=== PATIENT | male | born 1970 | race Caucasian/White ===

== ENCOUNTER 2016-07-08 00:31 | Emergency (ER) | payer MEDICAID, OTHER ==
[~2016-07-08] VITALS: Ht 182.9 cm; Wt 115.0 kg
[~2016-07-08 00:31] MED LIST: CYMB30CA PO; GABA400 PO; IBUP800T23 PO; KEPP1000 PO; NAPR550 PO; OMEP20TA39 PO; OMEPPOW PO; ROBA750T3 PO; SERO300T PO
[2016-07-08 00:45] VITALS: BP 129/82; PULSE 90; RESP 14; TEMP 98; O2SAT 94
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
== END 2016-07-08 01:15 ==
LOC: NEPB 00:31
DX: S00.81XA Abrasion of other part of head, initial encounter (principal); S10.91XA Abrasion of unspecified part of neck, initial encounter; M54.5 Low back pain; G89.29 Other chronic pain; F17.200 Nicotine dependence, unspecified, uncomplicated; Z86.69 Personal history of other diseases of the nervous system and sense organs; Z86.59 Personal history of other mental and behavioral disorders; Y04.0XXA Assault by unarmed brawl or fight, initial encounter
CPT/HCPCS: 99283

== ENCOUNTER 2017-03-10 23:33 | Inpatient (IN) | payer MEDICAID ==
[2017-03-10 23:40] VITALS: O2SAT 96
[2017-03-10] MEDS ORDERED: ONDANSETRON HCL 4 MG/2 ML VIAL ONE (23:41)
[2017-03-10] MEDS ORDERED: DIPHTH/TETANUS/ACEL PERTUSSIS (BOOSTER) 0.5 ML VIAL/PFS IM ONE (23:44)
[2017-03-10] MEDS ORDERED: ceFAZolin 2 GM PREMIX 50 ML ONE (23:44)
[2017-03-10] MEDS ORDERED: MORPHINE SULFATE 8 MG/ML INJ ONE (23:44)
[2017-03-10] MEDS ORDERED: ETOMIDATE 20 MG/10 ML VIAL ONE (23:45)
[2017-03-10] MEDS ORDERED: fentaNYL DRIP 250 ML ONE (23:49)
[2017-03-10] MEDS ORDERED: MIDAZOLAM 100 MG/100 ML INJ 100 ML ONE (23:49)
[2017-03-10 23:54] LABS: AUTOMATED NEUTROPHIL # 8.1 TH/MM3 (1.8-7.7); BASOPHIL # 0.1 TH/MM3 (0-0.2); BASOPHIL % 0.6 % (0.0-2.0); EOSINOPHIL # 0.4 TH/MM3 (0-0.4); EOSINOPHIL % 2.8 % (0.0-4.0); HEMATOCRIT 46.5 % (39.0-51.0); LYMPH % 36.1 % (9.0-44.0); LYMPHOCYTE # 5.7 TH/MM3 (1.0-4.8); MEAN CELL VOLUME 93.3 FL (80.0-100.0); MEAN CORPUSCULAR HEMOGLOBIN 33.4 PG (27.0-34.0); MEAN CORPUSCULAR HGB CONC 35.8 % (32.0-36.0); MONO % 8.8 % (0.0-8.0); NEUT % 51.7 % (16.0-70.0); PLATELET COUNT 330 TH/MM3 (150-450); RED BLOOD COUNT 4.98 MIL/MM3 (4.50-5.90); RED CELL DISTRIBUTION WIDTH 13.7 % (11.6-17.2); WHITE BLOOD COUNT 15.8 TH/MM3 (4.0-11.0)
[2017-03-10 23:55] LABS: HEMO FLAGS AUTO DIFF
[2017-03-10 23:56] LABS: I-STAT POTASSIUM 3.8 MMOL/L (3.5-4.9)
[2017-03-11] VITALS (18 sets, daily range): BP systolic 100–132; BP diastolic 56–76; PULSE 73–106; RESP 16–21; TEMP 96.1–99.7; O2SAT 98–100
[2017-03-11 00:05] LABS: APTT (PATIENT) 29.1 SEC (24.3-30.1); INTERNATIONAL NORMALIZED RATIO 1.1 RATIO
[2017-03-11] MEDS: SODIUM CHLOR 0.9% 1000 ML INJ 1,000 ML IV SCH ×2 (00:07→12:42)
[2017-03-11] MEDS ORDERED: SODIUM CHLORIDE 0.9% FLUSH 10 ML FLUSH IV FLUSH PRN (00:15)
[2017-03-11] MEDS ORDERED: SODIUM CHLORIDE 0.9% FLUSH 10 ML FLUSH IVF PRN (00:15)
[2017-03-11] MEDS ORDERED: NALOXONE HCL 0.4 MG/ML AMP IV PUSH PRN (00:15)
[2017-03-11] MEDS ORDERED: ONDANSETRON HCL 4 MG/2 ML VIAL IV PUSH PRN (00:15)
[2017-03-11] MEDS ORDERED: Post-op Orders (for Pharmacy) MISC XX ONE (00:15)
--- NOTE | 2017-03-11 00:23 | RADRPT ---
EXAM DATE/TIME: 03/10/2017 23:27 [facility] COMPARISON: No previous studies available for comparison. INDICATIONS : Intubation of a Trauma Alert patient going to surgery for an arm laceration. MEDICAL HISTORY : None. SURGICAL HISTORY : None. ENCOUNTER: Initial ACUITY: 1 day PAIN SCORE: Non-responsive. LOCATION: Bilateral chest FINDINGS: The endotracheal tube tip is just above the corrina and should be pulled back a couple centimeters. Th e lungs are clear. No pleural effusion. No pneumothorax. Normal heart size. CONCLUSION: Clear lungs. Endotracheal tube tip close to the corrina. See Marti MD on March 11, 2017 at 0:21 Board Certified Radiologist. This report was verified electronically.
--- NOTE | 2017-03-11 00:25 | RADRPT ---
EXAM DATE/TIME: 03/10/2017 23:27 [facility] COMPARISON: No previous studies available for comparison. INDICATIONS : Right arm lacerations from punching glass, Trauma Alert. MEDICAL HISTORY : None. SURGICAL HISTORY : None. ENCOUNTER: Initial ACUITY: 1 day PAIN SCORE: Non-responsive. LOCATION: Right forearm FINDINGS: A single view shows a deep soft tissue laceration laterally of the mid forearm. There is some bandagi ng and a tourniquet device seen but no other definite radiopaque structures. The right radius and uln a are grossly intact. CONCLUSION: Mid forearm soft tissue laceration without an acute bony abnormality. See Marti MD on March 11, 2017 at 0:23 Board Certified Radiologist. This report was verified electronically.
--- NOTE | 2017-03-11 00:29 | PD ---
HPI Chief Complaint: Trauma (Alert) Time Seen by Provider: 00:14 Travel History International Travel<30 days: No Contact w/Intl Traveler<30days: No Traveled to known affect area: No History of Present Illness HPI Adult male presents to the emergency department by EMS transport as a trauma alert after witnessed punching a plate glass window sustaining a large laceration to the right forearm with significant blood loss noted at the scene by paramedics. Estimated blood loss at the scene was 1 1-1/2 L of blood. Patient was noted to have tachycardic heart rate of 160. Patient was found to be diaphoretic. Patient really agitated with presumptive alcohol intoxication. No other injuries identified. No other history obtained. No IV access upon arrival. Patient agitated unwilling to cooperate patient with obvious large laceration to the right proximal forearm requiring tourniquet application and dressing applied. Distally diminished capillary refill unable to palpate pulse that reportedly was present per EMS upon arrival. PFSH Past Medical History Narrative Medical Unable to obtain due to patient mentation and agitation Social History Tobacco Use: No (unable to obtain) Allergies-Medications (Allergen,Severity, Reaction): Coded Allergies: morphine (Unverified Allergy, Severe, 03/14/17) penicillin G (Unverified Allergy, Severe, 03/14/17) Penicillins (Verified Allergy, Unknown, Hives, 03/14/17) Reported Meds & Prescriptions Reported Meds & Active Scripts Active Narrative Medication Unable to obtain Review of Systems ROS Limitations: Clinical Condition, Intoxication, Other: (unable to obtain) Except as stated in HPI: all other systems reviewed are Neg (unable to obtain) Physical Exam Narrative GENERAL: Well-developed well-nourished agitated diaphoretic combative male, GCS 13 SKIN: Warm and dry. HEAD: Normocephalic. EYES: No scleral icterus. No injection or drainage. NECK: Supple, trachea midline. No JVD or lymphadenopathy. CARDIOVASCULAR: Regular rate and rhythm without murmurs, gallops, or rubs. RESPIRATORY: Breath sounds equal bilaterally. No accessory muscle use. GASTROINTESTINAL: Abdomen soft, non-tender, nondistended. MUSCULOSKELETAL: No cyanosis, or edema. Attention right upper extremity forearm shows 12 cm laceration through to the tendon with concern for extensor transection distally patient has delayed capillary refill unable to palpate radial pulse turn a complicated released with increased bleeding at laceration site; direct pressure applied trace palpable pulse. BACK: Nontender without obvious deformity. No CVA tenderness. Data Data Orders Orders Ondansetron Inj (Zofran Inj) (03/10/17 23:41) I-Stat Profile (03/10/17 23:38) I-Stat Creatinine (03/10/17 23:38) Morphine Inj (Morphine Inj) (03/10/17 23:44) Complete Blood Count With Diff (03/10/17 23:38) Prothrombin Time / Inr (Pt) (03/10/17 23:38) Act Partial Throm Time (Ptt) (03/10/17 23:38) Chest, Single Ap (03/10/17 23:38) Iv Access Insert/Monitor (03/10/17 23:38) Ecg Monitoring (03/10/17 23:38) Oximetry (03/10/17 23:38) Oxygen Administration (03/10/17 23:38) Cefazolin 2 Gm Premix (Ancef 2 Gm Premix (03/10/17 23:44) Yoao-Gkc-Fqghzd (Booster) Inj (Boostrix (03/10/17 23:44) Etomidate Inj (Amidate Inj) (03/10/17 23:45) Type And Screen (03/10/17 23:46) Midazolam 100 Mg/100 Ml Inj (Versed Inj) (03/10/17 23:49) Alcohol (Ethanol) (03/10/17 23:48) Drug Screen, Random Urine (03/10/17 23:48) Fentanyl Drip (Fentanyl Drip) (03/10/17 23:49) Forearm, One View (03/11/17 ) Admit To Inpatient (03/11/17 ) Code Status (03/11/17 00:07) Vital Signs (Adult) Q4H (03/11/17 00:07) Activity Bed Rest (03/11/17 00:07) Intake + Output SHANTE.QSHIFT (03/11/17 00:07) ^ Orogastric Tube (03/11/17 00:07) Diet Npo (03/11/17 Breakfast) Sodium Chlor 0.9% 1000 Ml Inj (Ns 1000 M (03/11/17 00:07) Sodium Chloride 0.9% Flush (Ns Flush) (03/11/17 00:15) Sodium Chloride 0.9% Flush (Ns Flush) (03/11/17 09:00) Ondansetron Inj (Zofran Inj) (03/11/17 00:15) Famotidine Inj (Pepcid Inj) (03/11/17 09:00) Basic Metabolic Panel (Bmp) (03/12/17 06:00) Complete Blood Count With Diff (03/12/17 06:00) Resp Incentive Spirometry (03/11/17 ) Consult Boot Repairer (03/11/17 ) Cefazolin Inj (Ancef Inj) (03/11/17 04:00) Post-Op Orders (For Pharmacy) (Post-Op O (03/11/17 00:15) Naloxone Inj (Narcan Inj) (03/11/17 00:15) Enoxaparin Inj (Lovenox Inj) (03/11/17 23:00) Inpatient Certification (03/11/17 ) Admit Order (Ed Use Only) (03/11/17 ) ^ Saline Lock (03/11/17 00:14) Resp Oxygen Kareem C Titrat 1-4 L (03/11/17 ) Notify Dr: Other (03/11/17 00:14) Sodium Chloride 0.9% Flush (Ns Flush) (03/11/17 09:00) Sodium Chloride 0.9% Flush (Ns Flush) (03/11/17 00:15) Labs Laboratory Tests Test 03/10/17 23:40 03/10/17 23:55 White Blood Count 15.8 TH/MM3 Red Blood Count 4.98 MIL/MM3 Hemoglobin 16.6 GM/DL Hematocrit 46.5 % Mean Corpuscular Volume 93.3 FL Mean Corpuscular Hemoglobin 33.4 PG Mean Corpuscular Hemoglobin Concent 35.8 % Red Cell Distribution Width 13.7 % Platelet Count 330 TH/MM3 Mean Platelet Volume 8.6 FL Neutrophils (%) (Auto) 51.7 % Lymphocytes (%) (Auto) 36.1 % Monocytes (%) (Auto) 8.8 % Eosinophils (%) (Auto) 2.8 % Basophils (%) (Auto) 0.6 % Neutrophils # (Auto) 8.1 TH/MM3 Lymphocytes # (Auto) 5.7 TH/MM3 Monocytes # (Auto) 1.4 TH/MM3 Eosinophils # (Auto) 0.4 TH/MM3 Basophils # (Auto) 0.1 TH/MM3 CBC Comment AUTO DIFF Differential Total Cells Counted 100 Neutrophils % (Manual) 54 % Lymphocytes % 31 % Monocytes % 10 % Eosinophils % 4 % Basophils % 1 % Neutrophils # (Manual) 8.5 TH/MM3 Differential Comment FINAL DIFF MANUAL Platelet Estimate NORMAL Platelet Morphology Comment NORMAL Red Cell Morphology Comment NORMAL Prothrombin Time 12.0 SEC Prothromb Time International Ratio 1.1 RATIO Activated Partial Thromboplast Time 29.1 SEC Bedside Hemoglobin 16.0 G/DL Bedside Hematocrit 47.0 % Bedside Sodium 142 MMOL/L Bedside Potassium 3.8 MMOL/L Bedside Chloride 102 MMOL/L Bedside Blood Urea Nitrogen 5 MG/DL Bedside Creatinine 1.6 MG/DL Bedside Glucose 106 MG/DL Ethyl Alcohol Level 205 MG/DL [facility] Medical Decision Making Medical Screen Exam Complete: Yes Emergency Medical Condition: Yes Medical Record Reviewed: Yes Interpretation(s) right forearm xr: no hoda injury no FB cxr: nad, ett above corrina (pulled back x 1 cm) Differential Diagnosis Complex laceration, tendon transection, neurovascular injury, altered mentation , polysubstance ingestion, alcohol intoxication, hypovolemic/hemorrhagic shock Narrative Course Patient moved from C32 as a trauma, alert level II and moved to have a the Trauma bay and identified to have sustained tachycardia and hypotension therefore elevated to level I trauma. No other obvious injuries identified. In view of patient's ongoing agitation secondary to hypovolemic/hemorrhagic shock and probable ingestant intoxication, he was urgently intubated. Trauma surgeon into see patient at the beside Ongoing direct pressure applied to laceration site with intermittent tourniquet application. Patient received 2 L normal saline, 2 g Ancef, tetanus status update, sedation with fentanyl and Versed, patient had 4 units of emergency blood released for 2 units to be administered in the trauma bay this was held until patient was transferred emergently to the OR at the recommendation of the trauma surgeon at the bedside ; has assumed patient ongoing care and management. Procedures Procedure Narrative Urgently the following procedure was performed: INTUBATION: The patient was put in optimal position for the procedure. Rapid sequence intubation was initiated by me using 20 milligrams of etomidate IV and 100 milligrams of X no choline IV. The patient was intubated with a 7.5 cuffed endotracheal tube. Tube placement was confirmed by visualization of the tube and balloon passing through the cords, capnometry and subsequent chest x-ray with assistance of C Mac device. Breath sounds were equal and well aerated bilaterally postintubation. No breath sounds over stomach. Patient tolerated procedure well. Postintubation chest x-ray shows endotracheal tube just above the corrina. Physician Communication Physician Communication Discussed with Trauma Surgeon and avionics integration engineer Dr Hartley Diagnosis Primary Impression: Laceration of right arm with complication Qualified Codes: S41.111A - Laceration without foreign body of right upper arm , initial encounter Admitting Information Admitting Physician Requests: Admit Marina Miranda MD Mar 11, 2017 00:29
[2017-03-11 00:51] LABS: BLOOD GAS BASE EXCESS -8.5 mmol/L (-2-2); BLOOD GAS CARBOXYHEMOGLOBIN 2.7 % (0-4); BLOOD GAS HCO3 17 mmol/L (22-26); BLOOD GAS O2 HGB SATURATION 96 % (90-100); BLOOD GAS OXYGEN CONTENT 18.4 Vol % (12.0-20.0); BLOOD GAS PCO2 35 mmHg (38-42); BLOOD GAS PO2 278 mmHg (61-120); BLOOD GAS TOTAL HGB 13.2 G/DL (12.0-16.0); CRITICAL VALUE NO; OXYGEN DEVICE OR; STAT YES; TEMP CORR TO 98.6
[2017-03-11 01:45] LABS: BASOPHILS 1 % (0-2); EOSINOPHILS 4 % (0-4); NEUTROPHIL # MANUAL DIFF 8.5 TH/MM3 (1.8-7.7); POLYS (SEG NEUTROPHILS) 54 % (16-70); WBC DIFF SAMPLE 100
[2017-03-11 01:46] LABS: PLATELET ESTIMATE SMEAR NORMAL (NORMAL); PLATELET MORPHOLOGY NORMAL (NORMAL); SCAN/DIFF FINAL DIFF MANUAL
[2017-03-11] MEDS ORDERED: PROPOFOL 1000 MG/100 ML INJ 100 ML ONE (01:46)
[2017-03-11] MEDS ORDERED: PHENYLEPHRINE HCL 10 MG/ML VIAL ONE (02:02)
[2017-03-11] MEDS ORDERED: *morphine SULFATE 8 MG/ML PERIprocedure ONLY ONE (02:13)
[2017-03-11] MEDS ORDERED: DO NOT ADM ANY ANTICOAGULANT DRUGS PRN (02:15)
[2017-03-11] MEDS ORDERED: PHENYLEPHRINE 40 MG in D5W 500 ML IV PRN (02:15)
[2017-03-11] MEDS ORDERED: NOREPINEPHRINE 4 MG/D5W 250 ML IV PRN (02:15)
[2017-03-11] MEDS ORDERED: TERBUTALINE INJ 1 MG/ML AMP SQ PRN (02:15)
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
[2017-03-11] MEDS ORDERED: PROPOFOL 1000 MG/100 ML INJ 100 ML IV PRN (03:15)
[2017-03-11] MEDS: PROPOFOL 1000 MG/100 ML IV PRN ×3 (04:45→09:26)
[2017-03-11] MEDS ORDERED: POTASSIUM PHOSPHATE MONOBASIC 500 MG TAB PO/TUBE PRN (08:00)
[2017-03-11] MEDS ORDERED: MAGNESIUM SULFATE INJ 4 GM in SODIUM CHLORIDE 0.9% INJ 92 ML IV PRN (08:00)
[2017-03-11] MEDS ORDERED: POTASSIUM CHLOR 40 MEQ PREMIX 100 ML IV PRN ×2 (08:00)
[2017-03-11] MEDS ORDERED: POTASSIUM CHLORIDE 25 MEQ EFFERVESCENT TAB PO PRN (08:00)
[2017-03-11] MEDS: CHLORHEXIDINE 0.12% (ORAL KIT) 15 ML CUP MT SCH ×2 (08:00→20:00)
[2017-03-11] MEDS ORDERED: POTASSIUM PHOSPHATE INJ 30 MMOL in SODIUM CHLOR 0.9% 250 ML INJ 250 ML IV PRN (08:00)
[2017-03-11] MEDS ORDERED: POTASSIUM PHOSPHATE MONOBASIC 500 MG TAB PO PRN (08:00)
[2017-03-11] MEDS ORDERED: SODIUM PHOSPHATE INJ 30 MMOL in SODIUM CHLOR 0.9% 250 ML INJ 240 ML IV PRN (08:00)
[2017-03-11] MEDS ORDERED: MAGNESIUM OXIDE 400 MG TAB PO PRN (08:00)
[2017-03-11] MEDS ORDERED: RESP: ALBUTEROL 2.5 MG/IPRATROPIUM 0.5 MG NEB (PRN) NEB (08:00)
[2017-03-11] MEDS ORDERED: POTASSIUM CHLOR 20 MEQ PREMIX 100 ML IV PRN (08:00)
[2017-03-11] MEDS ORDERED: MAGNESIUM SULFATE INJ 2 GM in SODIUM CHLORIDE 0.9% INJ 96 ML IV PRN (08:00)
[2017-03-11] MEDS: SODIUM CHLORIDE 0.9% FLUSH 10 ML FLUSH IV FLUSH SCH ×2 (08:01→21:00)
[2017-03-11] MEDS: FAMOTIDINE 20 MG/2 ML VIAL IV PUSH SCH ×2 (08:01→21:27)
[2017-03-11] MEDS ORDERED: SODIUM CHLORIDE 0.9% FLUSH 10 ML FLUSH IV FLUSH SCH (09:00)
[2017-03-11 09:14] LABS: HEMATOCRIT 34.6 % (39.0-51.0); REVIEW FLAG FINAL
[2017-03-11] MEDS: RESP: ALBUTEROL 2.5 MG/IPRATROPIUM 0.5 MG NEB (SCH) NEB ×3 (09:24→22:37)
[2017-03-11] MEDS: DOCUSATE SODIUM 50 MG/SENNA 8.6 MG TAB PO SCH ×2 (09:25→21:27)
[2017-03-11] MEDS ORDERED: oxyCODONE/ACETAMINOPHEN 5 MG/325 MG TAB PO PRN (11:00)
[2017-03-11] MEDS ORDERED: MORPHINE SULFATE 4 MG/ML INJ IV PUSH PRN (11:00)
[2017-03-11] MEDS ORDERED: LIDOCAINE HCL 1% PF 5 ML AMPULE OTHER ONE (12:00)
[2017-03-11] MEDS ORDERED: PHENYLEPH/NS 1000 MCG/10 ML SYR IV ONE (12:00)
[2017-03-11] MEDS ORDERED: ROCURONIUM INJ 50 MG/5 ML SYRINGE IV PUSH ONE (12:00)
[2017-03-11] MEDS ORDERED: PROPOFOL 200 MG/20 ML AMP IV ONE (12:00)
[2017-03-11] MEDS ORDERED: PHENYLEPHRINE HCL 10 MG/ML VIAL IV ONE (12:00)
[2017-03-11] MEDS ORDERED: SUCCINYLCHOLINE CHLORIDE 100 MG/5 ML SYRINGE IV PUSH ONE (12:00)
[2017-03-11] MEDS ORDERED: ePHEDrine/NS 25 MG/5 ML SYR IV ONE (12:00)
[2017-03-11] MEDS: GABAPENTIN 300 MG CAP PO SCH ×2 (12:42→18:00)
[2017-03-11] MEDS: MULTIVITAMIN INJ 10 ML, THIAMINE INJ 100 MG, FOLIC ACID INJ 1 MG in SODIUM CHLORID 0.9%... IV SCH (12:42)
--- NOTE | 2017-03-11 13:11 | RADRPT ---
EXAM DATE/TIME: 03/11/2017 12:20 [facility] COMPARISON: No previous studies available for comparison. INDICATIONS : No known injury. Pain and swelling on medial aspect of patient's hand. MEDICAL HISTORY : None. SURGICAL HISTORY : None. ENCOUNTER: Subsequent ACUITY: 1 day PAIN SCORE: 10/10 LOCATION: Left Hand FINDINGS: Three view examination of the left hand demonstrates no soft tissue swelling, dislocation, or fractur e. The carpal bones appear intact. The interphalangeal and metacarpophalangeal joints are intact. Bony mineralization is normal. CONCLUSION: No fracture. Tyron Flores MD on March 11, 2017 at 13:08 Board Certified Radiologist. This report was verified electronically.
[2017-03-11] MEDS ORDERED: QUEtiapine FUMARATE 25 MG TAB PO SCH (14:00)
[2017-03-11] MEDS: oxyCODONE/ACETAMINOPHEN 10 MG/325 MG TAB PO PRN (14:36)
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
--- NOTE | 2017-03-11 16:14 | OTSOAPIP ---
TIME SESSION COMPLETED: AM TREATMENT TIME: 0 MINS. CHART REVIEWED. ATTEMPTED TO SEE FOR OT HOWEVER WAS AGITATED PER NURSE AND DEFERRED UNTIL NEXT DAY. Therapist: JACKSON QUEEN OT/Jaimie Signature on file
--- NOTE | 2017-03-11 16:18 | HHI.CCPN ---
Subjective Brief History Patient with large lacerations of the right arm is the result of punching through the glass window and that didn't go well for him Patient end up with lacerations deep into the tendon sheaths however radial and ulnar artery remained intact and so did ulnar and median nerve 24 Hour Review/Hospital Course Patient underwent exploration by me last night This morning patient was going wild finally had to be extubated without any period of CPAP Patient is now stable awake somnolent and sort of unhappy about being here Will transfer to floor Objective Vital Signs Date Time Temp Pulse Resp B/P (MAP) Pulse Ox O2 Delivery O2 Flow Rate FiO2 03/11/17 14:00 92 03/11/17 12:00 99.0 18 102/56 (71) 100 03/11/17 11:10 Nasal Cannula 3 03/11/17 08:00 50 Intake and Output 03/11/17 03/11/17 03/12/17 08:00 16:00 00:00 Intake Total 3741 ml 1119 ml Output Total 1900 ml Balance 1841 ml 1119 ml Result Diagram: 03/11/17 0900 Other Results Laboratory Tests Test 03/11/17 00:30 Blood Gas Puncture Site DRAWN IN OR Blood Gas Patient Temperature 98.6 Blood Gas HCO3 17 mmol/L (22-26) Blood Gas Base Excess -8.5 mmol/L (-2-2) Blood Gas Oxygen Saturation 96 % (90-100) Arterial Blood pH 7.30 (7.380-7.420) Arterial Blood Partial Pressure CO2 35 mmHg (38-42) Arterial Blood Partial Pressure O2 278 mmHg (61-120) Arterial Blood Oxygen Content 18.4 Vol % (12.0-20.0) Arterial Blood Carboxyhemoglobin 2.7 % (0-4) Arterial Blood Methemoglobin 1.0 % (0-2) Blood Gas Hemoglobin 13.2 G/DL (12.0-16.0) Oxygen Delivery Device OR Blood Gas Ventilator Setting UNKNOWN Imaging Last 24 hours Impressions Radius/Ulna X-Ray 03/11/17 0000 Signed Impressions: Service Date/Time: Friday, March 10, 2017 23:27 - CONCLUSION: Mid forearm soft tissue laceration without an acute bony abnormality. See Marti MD Hand X-Ray 03/11/17 0000 Signed Impressions: Service Date/Time: Saturday, March 11, 2017 12:20 - CONCLUSION: No fracture. Tyron Flores MD Chest X-Ray 03/10/17 2338 Signed Impressions: Service Date/Time: Friday, March 10, 2017 23:27 - CONCLUSION: Clear lungs. Endotracheal tube tip close to the corrina. MD Graham Capellan Slobodan MD Mar 11, 2017 16:18
[2017-03-11] MEDS: MAGNESIUM HYDROXIDE SUSP 30 ML CUP PO SCH (21:27)
[2017-03-11] MEDS: QUEtiapine FUMARATE 25 MG TAB PO SCH (21:28)
[2017-03-11] MEDS: ENOXAPARIN SODIUM 40 MG/0.4 ML SYRINGE SQ SCH (23:34)
[2017-03-12] VITALS (10 sets, daily range): BP systolic 112–132; BP diastolic 61–76; PULSE 60–96; RESP 17–20; TEMP 96.6–98.7; O2SAT 97–100
[2017-03-12] MEDS: RESP: ALBUTEROL 2.5 MG/IPRATROPIUM 0.5 MG NEB (SCH) NEB ×4 (04:00→21:32)
[2017-03-12] MEDS: SODIUM CHLOR 0.9% 1000 ML INJ 1,000 ML IV SCH ×4 (06:01→20:00)
[2017-03-12 06:07] LABS: AUTOMATED NEUTROPHIL # 5.3 TH/MM3 (1.8-7.7); BASOPHIL # 0.1 TH/MM3 (0-0.2); EOSINOPHIL # 0.5 TH/MM3 (0-0.4); EOSINOPHIL % 5.8 % (0.0-4.0); HEMATOCRIT 27.5 % (39.0-51.0); HEMO FLAGS DIFF FINAL; LYMPH % 20.2 % (9.0-44.0); LYMPHOCYTE # 1.7 TH/MM3 (1.0-4.8); MEAN CELL VOLUME 93.4 FL (80.0-100.0); MEAN CORPUSCULAR HEMOGLOBIN 33.1 PG (27.0-34.0); MEAN CORPUSCULAR HGB CONC 35.4 % (32.0-36.0); MONO % 10.2 % (0.0-8.0); NEUT % 62.8 % (16.0-70.0); PLATELET COUNT 183 TH/MM3 (150-450); RED BLOOD COUNT 2.94 MIL/MM3 (4.50-5.90); RED CELL DISTRIBUTION WIDTH 13.3 % (11.6-17.2); WHITE BLOOD COUNT 8.5 TH/MM3 (4.0-11.0)
[2017-03-12 06:38] LABS: BICARBONATE 28.7 MEQ/L (21.0-32.0); POTASSIUM 3.4 MEQ/L (3.5-5.1)
[2017-03-12] MEDS: CHLORHEXIDINE 0.12% (ORAL KIT) 15 ML CUP MT SCH ×2 (07:29→20:00)
--- NOTE | 2017-03-12 08:08 | MP ---
cc: NANCY BERNARD MD DATE OF SURGERY 03/11/2017 PREOPERATIVE DIAGNOSIS Large laceration of the right forearm with significant bleeding. POSTOPERATIVE DIAGNOSIS Large laceration of the right forearm with significant bleeding. OPERATIVE PROCEDURE 1. Exploration of the ulnar and radial artery. 2. Exploration of the median and ulnar nerve irrigation. 3. Irrigation, meticulous hemostasis of branches of the both arteries and layered closure of the incision. SURGEON MD Graham ANESTHESIA General. ESTIMATED BLOOD LOSS 100 cc OPERATIVE PROCEDURE The patient is prepped and draped in the usual fashion and area explored. The tourniquet is taken down readily. There are several subcutaneous and muscular bleeders with the vessels measuring about 1-2 mm in diameter. These are ligated with 2-0 Vicryl on SH needles, [id number]. The fascia of the arm has been entered. Incision is measuring about 12 cm in length. It is sort of tangential under oblique angle, cutting through the skin, subcutaneous tissue and fascia; however, not visibly cutting any tendons. Ulnar nerve is explored, so is the median nerve. Both appear to be intact. There is some swelling around the median nerve but that is about it and some hematoma but the nerve itself is in continuity. The ulnar and radial arteries are now exposed; they are both intact in this area and once the tourniquet is released the patient has excellent distal pulse. The area is irrigated now with saline, meticulous hemostasis obtained, then closed in layers with 2-0 Vicryl and 3-0 Prolene. Dressing applied. The patient tolerated the procedure well. Nancy WOLFE/LIEN /3:04 PM /8:01 AM
[2017-03-12] MEDS: SODIUM CHLORIDE 0.9% FLUSH 10 ML FLUSH IV FLUSH SCH ×2 (09:00→21:09)
[2017-03-12] MEDS: FAMOTIDINE 20 MG/2 ML VIAL IV PUSH SCH ×2 (09:17→21:09)
[2017-03-12] MEDS: GABAPENTIN 300 MG CAP PO SCH ×3 (09:18→17:58)
[2017-03-12] MEDS: POTASSIUM CHLOR 20 MEQ PREMIX 100 ML IV PRN ×2 (09:18→11:32)
[2017-03-12] MEDS: QUEtiapine FUMARATE 25 MG TAB PO SCH ×2 (09:18→21:05)
[2017-03-12] MEDS: LACTULOSE SYRUP 20 GM/30 ML CUP PO SCH (09:32)
[2017-03-12] MEDS: DOCUSATE SODIUM 50 MG/SENNA 8.6 MG TAB PO SCH ×2 (09:33→21:04)
[2017-03-12] MEDS: oxyCODONE/ACETAMINOPHEN 10 MG/325 MG TAB PO PRN ×3 (10:00→21:05)
[2017-03-12] MEDS: MULTIVITAMIN INJ 10 ML, THIAMINE INJ 100 MG, FOLIC ACID INJ 1 MG in SODIUM CHLORID 0.9%... IV SCH (13:11)
--- NOTE | 2017-03-12 14:48 | HHI.CCPN ---
Subjective Brief History Patient with large lacerations of the right arm is the result of punching through the glass window and that didn't go well for him Patient end up with lacerations deep into the tendon sheaths however radial and ulnar artery remained intact and so did ulnar and median nerve 24 Hour Review/Hospital Course Patient underwent exploration by me last night This morning patient was going wild finally had to be extubated without any period of CPAP Patient is now stable awake somnolent and sort of unhappy about being here Will transfer to floor 03/12/17 Patient is now awake and alert answered questions appropriately Right arm incision is clean and dry and patient is moving all fingers although he states he is somewhat numb over the dorsum of the hand. Palmar surface sensory perception seems to be intact but patient is a unwilling to cooperate with exam basically refuses to do anything He states he cannot move his arm and shoulder which would be quite unusual because of this is nothing to do with his current injury Strong palpable brachial radial and ulnar pulse normal capillary refill Patient still in the ICU because there are no floor beds available but he does not require further ICU care Objective Vital Signs Date Time Temp Pulse Resp B/P (MAP) Pulse Ox O2 Delivery O2 Flow Rate FiO2 03/12/17 11:08 22 03/12/17 09:15 99 Nasal Cannula 2.00 03/12/17 08:00 70 03/12/17 08:00 98.2 127/72 (90) 03/11/17 08:00 50 Intake and Output 03/12/17 03/12/17 03/13/17 08:00 16:00 00:00 Intake Total 1590 ml Output Total 650 ml Balance 940 ml Result Diagram: 03/12/17 0515 03/12/17 0515 Nancy Stevenson MD Mar 12, 2017 14:48
[2017-03-12] MEDS: MAGNESIUM HYDROXIDE SUSP 30 ML CUP PO SCH (21:00)
[2017-03-12] MEDS: ENOXAPARIN SODIUM 40 MG/0.4 ML SYRINGE SQ SCH (23:20)
[2017-03-13] VITALS: BP 119/69; PULSE 81; RESP 17; TEMP 96.2; O2SAT 98
[2017-03-13] MEDS: SODIUM CHLOR 0.9% 1000 ML INJ 1,000 ML IV SCH ×2 (02:07→06:13)
[2017-03-13] MEDS: RESP: ALBUTEROL 2.5 MG/IPRATROPIUM 0.5 MG NEB (SCH) NEB ×2 (03:00→09:26)
[2017-03-13 03:01] VITALS: O2SAT 94
[2017-03-13] MEDS: oxyCODONE/ACETAMINOPHEN 10 MG/325 MG TAB PO PRN ×2 (06:11→09:05)
[2017-03-13 08:00] VITALS: BP 110/68; PULSE 88; RESP 17; TEMP 97; O2SAT 93
[2017-03-13] MEDS: SODIUM CHLORIDE 0.9% FLUSH 10 ML FLUSH IV FLUSH SCH (09:00)
[2017-03-13] MEDS: DOCUSATE SODIUM 50 MG/SENNA 8.6 MG TAB PO SCH (09:04)
[2017-03-13] MEDS: QUEtiapine FUMARATE 25 MG TAB PO SCH (09:04)
[2017-03-13] MEDS: GABAPENTIN 300 MG CAP PO SCH (09:04)
[2017-03-13] MEDS: LACTULOSE SYRUP 20 GM/30 ML CUP PO SCH (09:05)
[2017-03-13 09:27] VITALS: O2SAT 98
[2017-03-13 12:00] VITALS: BP 121/62; PULSE 72; RESP 16; TEMP 97.5; O2SAT 96
[2017-03-13] MEDS ORDERED: OXYC1TAB63 PO (12:14)
--- NOTE | 2017-03-13 12:46 | HHI.DS ---
Discharge Summary Admission Date Mar 11, 2017 at 00:19 Discharge Date: Mar 13, 2017 Admitting Diagnosis TA; R Forearm complex laceration; hemorrhagic shock (1) Arm laceration ICD Codes: S41.119A - Laceration without foreign body of unspecified upper arm , initial encounter Status: Acute Brief History S/P Trauma: Arm laceration CBC/BMP: 03/12/17 0515 03/12/17 0515 Significant Findings Laboratory Tests Test 03/10/17 23:40 03/10/17 23:55 03/11/17 00:30 03/11/17 06:00 White Blood Count 15.8 TH/MM3 (4.0-11.0) Monocytes (%) (Auto) 8.8 % (0.0-8.0) Neutrophils # (Auto) 8.1 TH/MM3 (1.8-7.7) Lymphocytes # (Auto) 5.7 TH/MM3 (1.0-4.8) Monocytes # (Auto) 1.4 TH/MM3 (0-0.9) Monocytes % 10 % (0-8) Neutrophils # (Manual) 8.5 TH/MM3 (1.8-7.7) Prothrombin Time 12.0 SEC (9.8-11.6) Bedside Blood Urea Nitrogen 5 MG/DL (8-26) Bedside Creatinine 1.6 MG/DL (0.8-1.3) Bedside Glucose 106 MG/DL (60-95) Ethyl Alcohol Level 205 MG/DL (0-5) Blood Gas HCO3 17 mmol/L (22-26) Blood Gas Base Excess -8.5 mmol/L (-2-2) Arterial Blood pH 7.30 (7.380-7.420) Arterial Blood Partial Pressure CO2 35 mmHg (38-42) Arterial Blood Partial Pressure O2 278 mmHg (61-120) Urine Opiates Screen POS (NEG) Urine Amphetamines Screen POS (NEG) Urine Cocaine Screen POS (NEG) Urine Cannabinoids Screen POS (NEG) Test 03/11/17 09:00 03/12/17 05:15 03/12/17 06:30 03/13/17 06:00 Hemoglobin 11.8 GM/DL (13.0-17.0) 9.7 GM/DL (13.0-17.0) Hematocrit 34.6 % (39.0-51.0) 27.5 % (39.0-51.0) Red Blood Count 2.94 MIL/MM3 (4.50-5.90) Monocytes (%) (Auto) 10.2 % (0.0-8.0) Eosinophils (%) (Auto) 5.8 % (0.0-4.0) Eosinophils # (Auto) 0.5 TH/MM3 (0-0.4) Blood Urea Nitrogen 6 MG/DL (7-18) Calcium Level 7.6 MG/DL (8.5-10.1) Potassium Level 3.4 MEQ/L (3.5-5.1) Imaging Last Impressions Radius/Ulna X-Ray 03/11/17 0000 Signed Impressions: Service Date/Time: Friday, March 10, 2017 23:27 - CONCLUSION: Mid forearm soft tissue laceration without an acute bony abnormality. See Marti MD Hand X-Ray 03/11/17 0000 Signed Impressions: Service Date/Time: Saturday, March 11, 2017 12:20 - CONCLUSION: No fracture. Tyron Flores MD Chest X-Ray 03/10/17 2338 Signed Impressions: Service Date/Time: Friday, March 10, 2017 23:27 - CONCLUSION: Clear lungs. Endotracheal tube tip close to the corrina. See Marti MD PE at Discharge GENERAL: 46-year-old well-nourished, well developed male sitting OOB in chair. SKIN: Warm and dry. HEAD: Atraumatic. Normocephalic. ENT: No nasal bleeding or discharge. Mucous membranes pink and moist. NECK: Trachea midline. No JVD. CARDIOVASCULAR: Regular rate and rhythm. RESPIRATORY: No accessory muscle use. Lungs clear to auscultation. Breath sounds equal bilaterally. GASTROINTESTINAL: Abdomen soft, non-tender, nondistended. + BS. MUSCULOSKELETAL: Extremities without cyanosis, +1 right hand and forearm edema. Right forearm sutures well approximated, site C/D/I. Small amount of serous drainage noted from incision. NEUROLOGICAL: Awake and alert. Normal speech. Hospital Course T[place]: Punched a large glass window sustaining a large laceration to the right forearm with significant blood loss. (EBL = 1-1.5 L) + ETOH 205. Tachycardic. Diaphoretic. He was combative and agitated in the ED, therefore he was intubated. INJURIES: Laceration RIGHT arm PMHx: Seizures 03/11: Repair and closure of RIGHT arm; complex laceration 03/11: Extubated Diet: Regular Pulmonary: IS, acapella, EZ pap. nebs. Pain: Percocet. Neurontin Activity: OOB. PT and OT ordered. GI: Pepcid PO. Bowel: Shonda-colace. MOM. Lactulose. LBM: 0 DVT: SCD's. Lovenox 40 QD Laceration RIGHT arm 03/11: Repair and closure of RIGHT arm; complex laceration Pain control OOB- PT and OT Hgb stable Wound care: Cleanse wound daily with soap and water. Cover with dry dressing if draining, otherwise leave open to air. Follow-up with trauma office in 2 weeks for suture removal Follow-up with PCP in one week. Plan of care discussed patient at bedside. Patient is clear from trauma surgery standpoint to safely discharge home. Pt Condition on Discharge: Stable Discharge Disposition: Discharge Home Discharge Instructions DIET: Follow Instructions for: As Tolerated, No Restrictions Activities you can perform: Regular-No Restrictions Teri Herbert Mar 13, 2017 12:46
[2017-03-14] MEDS ORDERED: BACT800T5 PO (19:50)
== END 2017-03-13 13:32 | disposition home or self-care (01) | DRG 987 ==
LOC: HOR 23:33 → NEDA 03-11 00:19 → MERGE 03-11 00:19 → EDBD 03-11 00:19 → N03B 03-11 02:23 → N07A 03-12 17:26
PROVIDERS: ADMIT Surgery; ATTEND Surgery
PROC: 0JQG0ZZ Repair Right Lower Arm Subcutaneous Tissue and Fascia, Open Approach (ICD-10-PCS; principal; 2017-03-11 00:15)
DX: S64.11XA Injury of median nerve at wrist and hand level of right arm, initial encounter (principal); J96.90 Respiratory failure, unspecified, unspecified whether with hypoxia or hypercapnia; R57.9 Shock, unspecified; S65.111A Laceration of radial artery at wrist and hand level of right arm, initial encounter; W18.02XA Striking against glass with subsequent fall, initial encounter; Y92.9 Unspecified place or not applicable; E86.1 Hypovolemia; R56.9 Unspecified convulsions; F10.129 Alcohol abuse with intoxication, unspecified; Y90.7 Blood alcohol level of 200-239 mg/100 ml
CPT/HCPCS: 31500; 36430; 43753; 51702; 71010; 73130; 80048; 80307; 82435; 82565; 82805; 82947; 84132; 84295; 84520; 85007; 85014; 85018; 85025; 85027; 85610; 85730; 86850; 86900; 86901; 86920; 87641; 90715; 94002; 94150; 94640; 94664; 94668; 96361; 96374; 96375; 99291; G0390; J0330; J0690; J1650; J2250; J2270; J2370; J2405; J3010; J3411; J3480; J7030; J7040; J7060; P9016

== ENCOUNTER 2017-03-14 16:26 | Emergency (ER) | payer SELFPAY ==
[~2017-03-14] VITALS: Ht 182.9 cm; Wt 107.0 kg
[~2017-03-14 16:26] MED LIST changes: +OXYC1TAB63 PO
[2017-03-14 16:31] VITALS: BP 126/75; PULSE 88; RESP 18; TEMP 99.9; O2SAT 98
[2017-03-14] MEDS ORDERED: SODIUM CHLORIDE 0.9% FLUSH 10 ML FLUSH IV FLUSH PRN (18:15)
[2017-03-14 18:40] VITALS: BP 111/62; PULSE 74; RESP 18; O2SAT 100
--- NOTE | 2017-03-14 18:48 | RADRPT ---
EXAM DATE/TIME: 03/14/2017 18:14 [facility] COMPARISON: No previous studies available for comparison. INDICATIONS : Pain swelling and drainage from right anterior forearm sutures, cut with glass MEDICAL HISTORY : None. SURGICAL HISTORY : None. ENCOUNTER: [facility] ACUITY: 4 - 6 days PAIN SCORE: 9/10 LOCATION: Right Foream FINDINGS: The bony structures are intact. No fracture is seen. The elbow and wrist joints are aligned. There is a soft tissue injury of the superficial anterior mid forearm. This is seen as an area of increased d ensity in the superficial fat. No foreign body seen. There is superficial edema. CONCLUSION: Soft tissue injury. See Maldonado MD on March 14, 2017 at 18:45 Board Certified Radiologist. This report was verified electronically.
[2017-03-14 19:12] LABS: AUTOMATED NEUTROPHIL # 5.2 TH/MM3 (1.8-7.7); BASOPHIL # 0.1 TH/MM3 (0-0.2); BASOPHIL % 1.3 % (0.0-2.0); EOSINOPHIL # 0.8 TH/MM3 (0-0.4); EOSINOPHIL % 8.9 % (0.0-4.0); HEMO FLAGS DIFF FINAL; LYMPH % 22.2 % (9.0-44.0); LYMPHOCYTE # 1.9 TH/MM3 (1.0-4.8); MEAN CELL VOLUME 94.3 FL (80.0-100.0); MEAN CORPUSCULAR HEMOGLOBIN 33.3 PG (27.0-34.0); MEAN CORPUSCULAR HGB CONC 35.3 % (32.0-36.0); MONO % 8.4 % (0.0-8.0); NEUT % 59.2 % (16.0-70.0); PLATELET COUNT 262 TH/MM3 (150-450); RED BLOOD COUNT 3.18 MIL/MM3 (4.50-5.90); RED CELL DISTRIBUTION WIDTH 13.2 % (11.6-17.2); WHITE BLOOD COUNT 8.7 TH/MM3 (4.0-11.0)
--- NOTE | 2017-03-14 19:26 | PD ---
HPI Chief Complaint: Skin Problem Time Seen by Provider: 17:58 Travel History International Travel<30 days: No Contact w/Intl Traveler<30days: No History of Present Illness HPI Patient comes back to the emergency department for reevaluation of laceration to his right forearm that occurred 3 days ago and repaired in the OR by trauma surgeon. Patient reports continued pain around site. Patient states he has not last picker his prescription for pain medication and is concerned that he did not get discharged on antibiotics. Patient states that one of his sutures popped prior to being discharged from the hospital and was told that there was nothing to be done about that. Patient reports burning sensation inside of the wound is worse with movement of his right upper extremity. Denies any radiation of pain. Patient denies doing anything for this. Denies any fevers or new injuries. 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) Past Surgical History Abdominal Surgery: No Cardiac Surgery: No Ear Surgery: No Endocrine Surgery: No Eye Surgery: No Genitourinary Surgery: No Oral Surgery: No Thoracic Surgery: No Other Surgery: Yes (hand) Social History Alcohol Use: Yes (occassionaly ) Tobacco Use: Yes (half a pack a day ) Substance Use: No (Denies) Allergies-Medications (Allergen,Severity, Reaction): Coded Allergies: morphine (Unverified Allergy, Severe, 03/14/17) penicillin G (Unverified Allergy, Severe, 03/14/17) Penicillins (Verified Allergy, Unknown, Hives, 03/14/17) Reported Meds & Prescriptions Reported Meds & Active Scripts Active Bactrim DS (Sulfamethoxazole-Trimethoprim) 800-160 Mg Tab 1 Tab PO BID Review of Systems Except as stated in HPI: all other systems reviewed are Neg Physical Exam Narrative GENERAL: Well-developed, overly nourished, in no acute distress, and non-ill appearing. SKIN: Well-healing surgical wound over right forearm. There is scant amount of clear yellowish drainage. It is tender to palpation. There is no erythematous or crepitus. There is no fluctuation, induration, or streaking. Neurovascularly stable distally. HEAD: Atraumatic. Normocephalic. EYES: Pupils equal and round. EOMI. No scleral icterus. No injection or drainage. ENT: No nasal bleeding or discharge. Mucous membranes pink and moist. NECK: Trachea midline. Supple. No nuclear rigidity. CARDIOVASCULAR: Radial pulses 2+, tach, and equal bilaterally. Capillary refill less than 2 seconds. RESPIRATORY: No accessory muscle use. No respiratory distress. MUSCULOSKELETAL: No obvious deformities. No clubbing. No cyanosis. No edema. Full range of motion. NEUROLOGICAL: Awake and alert. No obvious cranial nerve deficits. Motor grossly within normal limits. Normal speech. PSYCHIATRIC: Appropriate mood and affect; insight and judgment normal. Data Data Last Documented VS Vital Signs Date Time Temp Pulse Resp B/P (MAP) Pulse Ox O2 Delivery O2 Flow Rate FiO2 03/14/17 19:53 03/14/17 19:28 88 16 100 Room Air 03/14/17 16:31 99.9 Orders Orders Basic Metabolic Panel (Bmp) (03/14/17 18:03) Complete Blood Count With Diff (03/14/17 18:03) Iv Access Insert/Monitor (03/14/17 18:03) Ecg Monitoring (03/14/17 18:03) Oximetry (03/14/17 18:03) Sodium Chloride 0.9% Flush (Ns Flush) (03/14/17 18:15) Forearm (2vws) (03/14/17 ) Oxycodone-Acetamin 5-325 Mg (Percocet (03/14/17 20:00) Labs Laboratory Tests Test 03/14/17 18:45 White Blood Count 8.7 TH/MM3 Red Blood Count 3.18 MIL/MM3 Hemoglobin 10.6 GM/DL Hematocrit 30.0 % Mean Corpuscular Volume 94.3 FL Mean Corpuscular Hemoglobin 33.3 PG Mean Corpuscular Hemoglobin Concent 35.3 % Red Cell Distribution Width 13.2 % Platelet Count 262 TH/MM3 Mean Platelet Volume 8.5 FL Neutrophils (%) (Auto) 59.2 % Lymphocytes (%) (Auto) 22.2 % Monocytes (%) (Auto) 8.4 % Eosinophils (%) (Auto) 8.9 % Basophils (%) (Auto) 1.3 % Neutrophils # (Auto) 5.2 TH/MM3 Lymphocytes # (Auto) 1.9 TH/MM3 Monocytes # (Auto) 0.7 TH/MM3 Eosinophils # (Auto) 0.8 TH/MM3 Basophils # (Auto) 0.1 TH/MM3 CBC Comment DIFF FINAL Differential Comment Blood Urea Nitrogen 4 MG/DL Creatinine 0.75 MG/DL Random Glucose 106 MG/DL Calcium Level 8.5 MG/DL Sodium Level 142 MEQ/L Potassium Level 3.9 MEQ/L Chloride Level 106 MEQ/L Carbon Dioxide Level 30.0 MEQ/L Anion Gap 6 MEQ/L Estimat Glomerular Filtration Rate 113 ML/MIN MDM Medical Decision Making Medical Screen Exam Complete: Yes Emergency Medical Condition: Yes Differential Diagnosis Wound infection, wound recheck, postop complication, other Narrative Course Patient in no obvious distress upon re-evaluation. All pertinent laboratory/ Radiology result(s) discussed with patient. We'll place patient on antibiotics prophylactically. Discussed patient with Dr. Murphy prior to discharge, who is in agreement with plan of care and disposition. Patient was asked if they wanted to speak to my attending, which the patient did not wish to do at this time. Any questions/concerns in reference to patient diagnosis/condition discussed and clarified prior to patient's discharge. Reinforced sheer importance of close follow up with patient's primary physician or primary care clinic. Instructed patient to return to ED immediately, if symptoms return/ worsen. Patient showed understanding of above instructions. Further instructions and recommendations were detailed in discharge paperwork. Patient ambulated without difficulty out of ED at discharge. Diagnosis Primary Impression: Encounter for wound re-check Patient Instructions: Acute Wound Care (GEN), Care For Your Stitches (ED), General Instructions Additional Instructions: Follow-up as previously instructed. Take all medication as prescribed. Keep wound dry and clean as possible using soap and water. Use Neosporin to promote healing. Do not soak or submerge wound. Return to the emergency department if symptoms get worse.s Med/Other Pt SpecificInfo: Prescription(s) given Scripts Sulfamethoxazole-Trimethoprim (Bactrim DS) 800-160 Mg Tab 1 TAB PO BID for Infection, #14 TAB 0 Refills Prov: Arron Murphy MD 03/14/17 Disposition: 01 DISCHARGE HOME Condition: Stable Dani Mcmillan D PA Mar 14, 2017 19:26
[2017-03-14 19:28] VITALS: BP 122/59; PULSE 88; RESP 16; O2SAT 100
[2017-03-14 19:28] LABS: POTASSIUM 3.9 MEQ/L (3.5-5.1)
[2017-03-14] MEDS ORDERED: BACT800T5 PO (19:50)
[2017-03-14] MEDS ORDERED: oxyCODONE/ACETAMINOPHEN 5 MG/325 MG TAB PO ONE (20:00)
== END 2017-03-14 20:02 | disposition home or self-care (01) ==
LOC: NEPE 16:26
DX: S51.811A Laceration without foreign body of right forearm, initial encounter (principal); I10 Essential (primary) hypertension; X58.XXXA Exposure to other specified factors, initial encounter; Z09 Encounter for follow-up examination after completed treatment for conditions other than malignant neoplasm
CPT/HCPCS: 73090; 80048; 85025; 99284

== ENCOUNTER 2017-04-05 15:17 | Emergency (ER) | payer SELFPAY ==
[~2017-04-05] VITALS: Ht 182.9 cm; Wt 100.0 kg
[~2017-04-05 15:17] MED LIST changes: +BACT800T5 PO; -CYMB30CA PO; -GABA400 PO; -IBUP800T23 PO; -KEPP1000 PO; -NAPR550 PO; -OMEP20TA39 PO; -OMEPPOW PO; -OXYC1TAB63 PO; -ROBA750T3 PO; -SERO300T PO
[2017-04-05 15:18] VITALS: BP 136/73; PULSE 71; RESP 18; TEMP 98.4; O2SAT 100
--- NOTE | 2017-04-05 15:40 | PD ---
HPI Chief Complaint: Wound/Suture/Staple Re-Check Time Seen by Provider: 15:29 Travel History International Travel<30 days: No Contact w/Intl Traveler<30days: No Traveled to known affect area: No History of Present Illness HPI 46-year-old male presents to the emergency Department requesting suture removal from his right forearm from March 10. He says the area is extremely painful. He was on antibiotics for 2 weeks which he finished one week ago. He reports drainage from the wound site. Denies fever, vomiting. Pain is 10/10. Describes the pain as a throbbing, shooting, stabbing sensation. Pain is worse with movement and palpation of the arm. Pain is constant and no known relieving factors. Reports paresthesias to the right hand which have been unchanged since the injury. Denies loss of sensation, decreased range of motion , decreased strength to the affected extremity. Allergies to penicillins and morphine. Has no other medical complaints. No other modifying factors or associated signs and symptoms. 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) Past Surgical History Abdominal Surgery: No Cardiac Surgery: No Ear Surgery: No Endocrine Surgery: No Eye Surgery: No Genitourinary Surgery: No Oral Surgery: No Thoracic Surgery: No Other Surgery: Yes (hand) Social History Alcohol Use: Yes (occassionaly ) Tobacco Use: Yes (half a pack a day ) Substance Use: No (Denies) Allergies-Medications (Allergen,Severity, Reaction): Coded Allergies: morphine (Unverified Allergy, Severe, 04/05/17) penicillin G (Unverified Allergy, Severe, 04/05/17) Penicillins (Verified Allergy, Unknown, Hives, 04/05/17) Reported Meds & Prescriptions Reported Meds & Active Scripts Active Ibuprofen 800 Mg Tab 800 Mg PO Q6HR PRN Clindamycin (Clindamycin HCl) 150 Mg Cap 450 Mg PO Q6H 10 Days Reported Seroquel XR (Quetiapine Fumarate) 300 Mg Tab 600 Mg PO HS Seroquel (Quetiapine Fumarate) 300 Mg Tab 300 Mg PO BID Neurontin (Gabapentin) 400 Mg Cap 400 Mg PO BID Xanax (Alprazolam) 0.25 Mg Tab 0.25 Mg PO Q8H PRN Keppra (Levetiracetam) 500 Mg Tab 1,000 Mg PO BID Percocet (Oxycodone-Acetaminophen) 10-325 mg Tab 1 Tab PO Q6H PRN Review of Systems Except as stated in HPI: all other systems reviewed are Neg Physical Exam Narrative GENERAL: Well-nourished, well-developed male patient, in no acute distress SKIN: Warm and dry. Right forearm laceration that is well approximated with sutures intact; there is an area with a small amount of drainage noted; the laceration is surrounded by erythema and does have warmth to touch to the area with the drainage is; no lymphangitis; forearm is without edema; tenderness on palpation is out of proportion. Right upper extremity supple and non-tense with 2+ radial pulse and with sensory intact. HEAD: Atraumatic. Normocephalic. EYES: Pupils equal and round. No scleral icterus. No injection or drainage. ENT: Mucosa pink and moist. Airway patent. NECK: Trachea midline. CARDIOVASCULAR: Regular rate. RESPIRATORY: No accessory muscle use. GASTROINTESTINAL: Obese. MUSCULOSKELETAL: No obvious deformities. No clubbing. No cyanosis. No edema. NEUROLOGICAL: Awake and alert. Oriented 3. No obvious cranial nerve deficits. Motor grossly within normal limits. Normal speech. PSYCHIATRIC: Appropriate mood and affect; insight and judgment normal. Data Data Last Documented VS Vital Signs Date Time Temp Pulse Resp B/P (MAP) Pulse Ox O2 Delivery O2 Flow Rate FiO2 04/05/17 15:18 98.4 71 18 136/73 (94) 100 Room Air Orders Orders Forearm (2vws) (04/05/17 15:39) Ibuprofen (Motrin) (04/05/17 15:45) Wound Culture And Gram Stain (04/05/17 15:41) Ed Discharge Order (04/05/17 16:24) MDM Medical Decision Making Medical Screen Exam Complete: Yes Emergency Medical Condition: Yes Medical Record Reviewed: Yes Differential Diagnosis Wound infection, osteomyelitis, encounter for suture removal Narrative Course 46-year-old male presents for suture removal to his right forearm. Sutures been in place since March 10. Patient's pain is out of proportion on physical exam. There is some drainage coming from the laceration site. Wound culture ordered. I will order an x-ray to rule out osteomyelitis or acute process. Ibuprofen administered in the ER. 1621: Right forearm x-ray with no acute findings. Ibuprofen and Clindamycin prescribed for home for suspected wound infection. Instructed patient to follow up with primary care provider. Patient verbalizes understanding and agreement with treatment plan. Patient is medically cleared and stable for discharge. Discussed reasons to return to the emergency department. Patient agrees with treatment plan. The patients vital signs are stable and the patient is stable for outpatient follow-up and treatment. Patient discharged home, stable and in no acute distress. Diagnosis Primary Impression: Encounter for removal of sutures Additional Impression: Wound infection Referrals: [facility] Primary Care Physician Patient Instructions: Acute Wound Care (DC), General Instructions, Wound Infection (ED) Additional Instructions: Antibiotics as prescribed; clindamycin is $20 at the [facility] pharmacy in [facility] clean and dry Ibuprofen or Tylenol as directed and as needed for pain Follow-up with primary care provider Return to the emergency department immediately with worsening of symptoms Med/Other Pt SpecificInfo: Prescription(s) given Scripts Ibuprofen (Ibuprofen) 800 Mg Tab 800 MG PO Q6HR Y for PAIN, #20 TAB 0 Refills Prov: Carmen Mitchell 04/05/17 Clindamycin (Clindamycin) 150 Mg Cap 450 MG PO Q6H for Infection for 10 Days, #120 CAP 0 Refills Prov: Carmen Mitchell 04/05/17 Disposition: 01 DISCHARGE HOME Condition: Stable Carmen Mitchell Apr 05, 2017 15:40
[2017-04-05] MEDS ORDERED: IBUPROFEN 800 MG TAB PO ONE (15:45)
[2017-04-05] MEDS ORDERED: PERC10TA27 PO (15:59)
[2017-04-05] MEDS ORDERED: LEVE500 PO (15:59)
[2017-04-05] MEDS ORDERED: QUET300XR PO (16:02)
[2017-04-05] MEDS ORDERED: ALPR.5 PO (16:02)
[2017-04-05] MEDS ORDERED: ALPR.25 PO (16:02)
[2017-04-05] MEDS ORDERED: SERO300T PO (16:02)
[2017-04-05] MEDS ORDERED: NEUR600T PO (16:02)
[2017-04-05] MEDS ORDERED: NEUR400C PO (16:02)
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
[2017-04-05] MEDS ORDERED: CLIN150C14 PO (16:23)
[2017-04-05] MEDS ORDERED: IBUP1TAB7 PO (16:23)
== END 2017-04-05 17:00 | disposition home or self-care (01) ==
LOC: NEPK 15:17
DX: Z48.02 Encounter for removal of sutures (principal); M79.601 Pain in right arm; A49.01 Methicillin susceptible Staphylococcus aureus infection, unspecified site; F31.9 Bipolar disorder, unspecified; F41.9 Anxiety disorder, unspecified; I10 Essential (primary) hypertension; K21.9 Gastro-esophageal reflux disease without esophagitis; R56.9 Unspecified convulsions; F17.200 Nicotine dependence, unspecified, uncomplicated
CPT/HCPCS: 73090; 86403; 87070; 87186; 99281

== ENCOUNTER 2017-11-18 22:52 | Inpatient (IN) | payer MEDICAID, OTHER ==
[~2017-11-18] VITALS: Ht 182.9 cm; Wt 97.2 kg
[~2017-11-18 22:52] MED LIST changes: +ALPR.25 PO; -BACT800T5 PO; +CLIN150C14 PO; +IBUP1TAB7 PO; +LEVE500 PO; +NEUR400C PO; +PERC10TA27 PO; +QUET300XR PO; +SERO300T PO
[2017-11-18 22:58] VITALS: BP 137/84; PULSE 76; RESP 20; TEMP 98; O2SAT 95
[2017-11-18 23:12] VITALS: RESP 20
[2017-11-18 23:47] LABS: AUTOMATED NEUTROPHIL # 5.4 TH/MM3 (1.8-7.7); BASOPHIL # 0.1 TH/MM3 (0-0.2); BASOPHIL % 1.3 % (0.0-2.0); EOSINOPHIL # 0.2 TH/MM3 (0-0.4); EOSINOPHIL % 2.6 % (0.0-4.0); HEMATOCRIT 41.8 % (39.0-51.0); LYMPH % 21.4 % (9.0-44.0); LYMPHOCYTE # 1.7 TH/MM3 (1.0-4.8); MEAN CELL VOLUME 83.6 FL (80.0-100.0); MEAN CORPUSCULAR HGB CONC 33.5 % (32.0-36.0); MONO % 7.9 % (0.0-8.0); MONOCYTE # 0.6 TH/MM3 (0-0.9); NEUT % 66.8 % (16.0-70.0); PLATELET COUNT 234 TH/MM3 (150-450); RED CELL DISTRIBUTION WIDTH 15.1 % (11.6-17.2); WHITE BLOOD COUNT 8.2 TH/MM3 (4.0-11.0)
--- NOTE | 2017-11-19 00:02 | RADRPT ---
EXAM DATE: 11/18/2017 11:46 PM EDT AGE/SEX: 47 years / Male INDICATIONS: Chest pain. Poss overdose/EVAC CLINICAL DATA: This is the patient's initial encounter. Patient reports that signs and symptoms have been present for 1 day and indicates a pain score of Nonresponsive. MEDICAL/SURGICAL HISTORY: Non-responsive. Non-responsive. COMPARISON: [facility] [place], CHEST SINGLE AP, 03/10/2017. . FINDINGS: Single AP view of the chest. The lungs are clear. Cardiomediastinal silhouette within nor mal limits. No evidence of pleural effusion or pneumothorax. CONCLUSION: No acute cardiopulmonary disease identified. Electronically signed by: Eder Vazquez MD 11/19/2017 12:01 AM EDT
[2017-11-19 00:03] LABS: ACETAMINOPHEN LESS THAN 2.0 MCG/ML (10.0-30.0); ALBUMIN 3.7 GM/DL (3.4-5.0); ALKALINE PHOSPHATASE 71 U/L (45-117); ALT (GPT) 23 U/L (12-78); AST (GOT) 25 U/L (15-37); BICARBONATE 25.8 MEQ/L (21.0-32.0); BLOOD UREA NITROGEN 7 MG/DL (7-18); CALCIUM 8.4 MG/DL (8.5-10.1); CHLORIDE 103 MEQ/L (98-107); CREATININE 1.04 MG/DL (0.60-1.30); GLOMERULAR FILTRATION RATE 77 ML/MIN (>89); GLUCOSE,RANDOM 140 MG/DL (74-106); SODIUM (NA) 139 MEQ/L (136-145); TOTAL PROTEIN 7.1 GM/DL (6.4-8.2); TROPONIN I LESS THAN 0.02 NG/ML (0.02-0.05)
[2017-11-19] MEDS ORDERED: SODIUM CHLOR 0.9% 1000 ML INJ 1,000 ML IV ONE (00:15)
[2017-11-19] MEDS ORDERED: POTASSIUM CHLORIDE 10 MEQ CAP PO ONE (00:15)
[2017-11-19 00:16] LABS: OVALOCYTES 1+ (NORMAL)
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
[2017-11-19 01:06] LABS: BILIRUBIN, URINE NEG (NEG); BLOOD, URINE NEG (NEG); CALCIUM OXALATE CRYSTALS,URINE RARE /hpf; GLUCOSE,URINE NEG (NEG); KETONE, URINE NEG (NEG); MUCUS URINE FEW /lpf (OCC); NITRITE,URINE NEG (NEG); PH, URINE 6.5 (5.0-8.5); URINE COLOR YELLOW (YELLW/STRAW); URINE LEUKOCYTE ESTERASE NEG (NEG)
[2017-11-19 02:45] VITALS: BP 130/72; PULSE 88; RESP 20; TEMP 98; O2SAT 98
[2017-11-19 07:51] VITALS: BP 116/69; PULSE 70; RESP 17; O2SAT 67; O2SAT 99
--- NOTE | 2017-11-19 14:27 | EKG ---
Date Performed: 11/18/2017 Time Performed: 22:02:37 PTAGE: 47 years EKG: Sinus rhythm WITH OCCASIONAL VENTRICULAR PREMATURE COMPLEXES POSSIBLE LEFT ATRIAL ENLARGEMENT INCOMPLETE RIGHT BU NDLE BRANCH BLOCK SEPTAL MYOCARDIAL INFARCTION ABNORMAL ECG NO PREVIOUS TRACING DOCTOR: Bassam Moscoso Interpretating Date/Time 11/19/2017 14:26:35
[2017-11-19 17:15] VITALS: BP 120/65; PULSE 59; RESP 17; TEMP 97.5; O2SAT 100
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
[2017-11-19] MEDS ORDERED: ALUMINUM/MAGNESIUM/SIMETH 30 ML CUP PO PRN (17:30)
[2017-11-19] MEDS ORDERED: MAGNESIUM HYDROXIDE SUSP 30 ML CUP PO PRN (17:30)
[2017-11-19] MEDS ORDERED: ACETAMINOPHEN 325 MG TAB PO PRN (17:30)
[2017-11-19 19:30] VITALS: BP 118/62; PULSE 58; RESP 17; TEMP 98; O2SAT 100
[2017-11-19] MEDS: QUEtiapine FUMARATE 300 MG TAB PO SCH (20:09)
[2017-11-19] MEDS: REMOVE OLD PATCH T-DERMAL SCH (20:47)
[2017-11-20 05:45] VITALS: BP 124/61; PULSE 55; RESP 18; TEMP 97.7; O2SAT 100
[2017-11-20 08:36] LABS: BLOOD UREA NITROGEN 13 MG/DL (7-18); CALCIUM 8.4 MG/DL (8.5-10.1); CHLORIDE 105 MEQ/L (98-107); CHOLESTEROL 127 MG/DL (120-200); CHOLESTEROL/ HDL RATIO 3.98 RATIO; CREATININE 0.92 MG/DL (0.60-1.30); GLOMERULAR FILTRATION RATE 89 ML/MIN (>89); GLUCOSE,RANDOM 97 MG/DL (74-106); HDL CHOLESTEROL 31.9 MG/DL (40.0-60.0); LDL CHOLESTEROL 71 MG/DL (0-99); SODIUM (NA) 141 MEQ/L (136-145); TRIGLYCERIDES 120 MG/DL (42-150)
[2017-11-20] MEDS: QUEtiapine FUMARATE 300 MG TAB PO SCH ×2 (08:36→21:17)
[2017-11-20] MEDS: NICOTINE 21 MG/24 HR PATCH T-DERMAL SCH (09:00)
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
[2017-11-20] MEDS ORDERED: LORazepam 2 MG/ML VIAL IM PRN ×4 (10:15)
[2017-11-20] MEDS ORDERED: LORazepam 1 MG TAB PO PRN (10:15)
[2017-11-20] MEDS: GABAPENTIN 400 MG CAP PO SCH ×2 (10:15→21:16)
[2017-11-20] MEDS: levETIRAcetam 500 MG TAB PO SCH ×2 (10:15→21:16)
[2017-11-20] MEDS ORDERED: FLUMAZENIL 0.5 MG/5 ML VIAL IV PUSH PRN (10:15)
[2017-11-20] MEDS ORDERED: LORazepam 2 MG TAB PO PRN (10:15)
[2017-11-20] MEDS ORDERED: hydrOXYzine HCL 50 MG TAB PO PRN (10:15)
[2017-11-20] MEDS ORDERED: LOPERAMIDE HCL 2 MG CAP PO PRN (12:15)
[2017-11-20] MEDS ORDERED: cloNIDine HCL 0.1 MG TAB PO PRN (12:15)
[2017-11-20] MEDS ORDERED: ONDANSETRON ODT 4 MG TAB PO PRN (12:15)
[2017-11-20 16:09] VITALS: BP 117/62; PULSE 63; RESP 18; TEMP 98.3; O2SAT 100
[2017-11-20 16:12] LABS: HEMOGLOBIN A1C 5.2 % (4.3-6.0)
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
[2017-11-20] MEDS ORDERED: BACLOFEN 10 MG TAB PO PRN (16:45)
[2017-11-20] MEDS ORDERED: PILL SPLITTER OTHER PRN (17:30)
[2017-11-20] MEDS: REMOVE OLD LIDOCAINE PATCH T-DERMAL SCH (21:00)
[2017-11-20] MEDS: REMOVE OLD PATCH T-DERMAL SCH (21:00)
[2017-11-20] MEDS: FAMOTIDINE 20 MG TAB PO SCH (21:16)
[2017-11-21 06:24] VITALS: BP 115/57; PULSE 58; RESP 22; TEMP 97.3; O2SAT 99
[2017-11-21] MEDS: TAMSULOSIN HCL 0.4 MG CAP PO SCH (08:40)
[2017-11-21] MEDS: QUEtiapine FUMARATE 300 MG TAB PO SCH ×2 (08:40→20:38)
[2017-11-21] MEDS: levETIRAcetam 500 MG TAB PO SCH ×2 (08:41→20:36)
[2017-11-21] MEDS: GABAPENTIN 400 MG CAP PO SCH ×2 (08:41→20:38)
[2017-11-21] MEDS: FAMOTIDINE 20 MG TAB PO SCH ×2 (08:41→20:37)
[2017-11-21] MEDS: LIDOCAINE HCL 5% PATCH T-DERMAL SCH (08:43)
[2017-11-21] MEDS: NICOTINE 21 MG/24 HR PATCH T-DERMAL SCH (08:46)
--- NOTE | 2017-11-21 12:25 | HHI.PYPN ---
Subjective Chief Complaint: Reported suicidal overdose Remarks Patient seen and examined with nurse. Chart reviewed. Case discussed with nursing staff. On my examination today, the patient complains of back pain. He does walk with an antalgic gait. Hospitalist has already evaluated the patient for this issue and will be following up. Physical therapy eval has been ordered. Patient's affect is dysphoric today. He says that his hallucinations are worse today. He now reports auditory hallucinations of voices. No reported CAH. Some ongoing vague suicidality. No side effects from medications. No physical complaints. Review of Systems Except as stated in HPI: all other systems reviewed are Neg Mental Status Examination Appearance: Appropriate Consciousness: Alert Orientation: x4 Motor Activity: Other (Antalgic gait. No other motor abnormalities noted.) Speech: Unremarkable Language: Adequate Fund of Knowledge: Adequate Attention and Concentration: Easily Distracted Memory: Unremarkable (Grossly intact on clinical exam) Mood: Other (Remains dysphoric) Affect: Other (Restricted) Thought Process & Associations: Intact, Logical, Linear Thought Content: Appropriate Hallucination Type: Auditory Delusion Type: None Suicidal Ideation: Yes (Vague) Suicidal Plan: No Suicidal Intention: No Homicidal Ideation: No Homicidal Plan: No Homicidal Intention: No Insight: Adequate Judgment: Adequate Results Labs Labs reviewed Vitals/IOs Vital Signs Date Time Temp Pulse Resp B/P (MAP) Pulse Ox O2 Delivery O2 Flow Rate FiO2 11/21/17 06:24 97.3 58 22 115/57 (76) 99 11/19/17 17:15 Room Air Assessment & Plan Problem List: (1) Adjustment disorder with mixed disturbance of emotions and conduct ICD Codes: F43.25 - Adjustment disorder with mixed disturbance of emotions and conduct (2) Polysubstance dependence ICD Codes: F19.20 - Other psychoactive substance dependence, uncomplicated Assessment & Plan Titrate Seroquel to 300 mg in the morning and 400 mg at bedtime for reported hallucinatory material. Given patient's chronic pain issues, to consider adding an SNRI like Cymbalta for patient's dysphoria. Continue to monitor on the inpatient unit. Continue other medications and care as ordered. Justification for Cont. Inpt. Medication changes. Impairment in reality construction. Monitoring for impairment in safety. Risk for decompensation in less restrictive environment. Discharge Planning Pending psychiatric stabilization Request HC Surrog/Guard Advoc?: No Henry Khan MD Nov 21, 2017 12:25
--- NOTE | 2017-11-21 13:06 | HHI.PR ---
Subjective Remarks Follow-up visit for attempted heroin overdose, chronic pain, urinary hesitancy. Nurse reports Lidoderm patch was placed on patient, still complaining of back pain. Patient is seen and examined in his room, asleep in bed and appears to be in no acute distress. He wakes up with verbal stimuli, continues to complain of back pain and is asking why he is unable to get his Soma for pain. He reports pain is unchanged in his lower back, denies any saddle anesthesia, urinary or fecal incontinence. Patient also refused to try ibuprofen or Tylenol as reported by nurse. Discussed with patient trying ibuprofen and Tylenol alternating as ibuprofen as an anti-inflammatory drug. Also encourage patient to try baclofen as he has not yet had this medication. Patient reports he is no longer having urinary hesitancy, denies any fevers, chills, nausea, vomiting, diarrhea, headaches, dizziness, shortness of breath, cough or chest pain. Objective Vitals Vital Signs Date Time Temp Pulse Resp B/P (MAP) Pulse Ox O2 Delivery O2 Flow Rate FiO2 11/21/17 06:24 97.3 58 22 115/57 (76) 99 11/20/17 16:09 98.3 63 18 117/62 (80) 100 Result Diagram: 11/18/17 2323 11/20/17 0750 Imaging Last Impressions Chest X-Ray 11/18/17 2309 Signed Impressions: CONCLUSION: No acute cardiopulmonary disease identified. Objective Remarks GENERAL: male in no acute distress. SKIN:Cool and dry. HEAD: Normocephalic. EYES: Pupils equal round. No scleral icterus. No injection or drainage. ENT: Nose without bleeding. Airway patent. NECK: Trachea midline. CARDIOVASCULAR: Regular rate and rhythm without murmurs, gallops, or rubs. RESPIRATORY: Clear to auscultation. Breath sounds equal bilaterally. No wheezes , rales, or rhonchi. GASTROINTESTINAL: Abdomen soft, non-tender, nondistended. MUSCULOSKELETAL: Extremities without clubbing, cyanosis, or edema. Lumbar spine tenderness. Bilateral lower extremity strength while lying in bed normal with no limitations to range of motion. NEUROLOGICAL: Awake and alert. No cranial nerve deficits. Motor and sensory grossly within normal limits. Normal speech. A/P Assessment and Plan 47-year-old male with past medical history significant for hypertension, enlarged prostate, GERD, chronic back pain, schizophrenia, bipolar disorder, and PTSD who presented to the emergency department following an attempted overdose and subsequently placed under Alves act. [facility] has been consulted to assist with medical management along with treatment of patient's chronic pain and myalgias. Heroin OD Polysubstance abuse -Treatment plan per psychiatry greatly appreciated -Discussed the importance of drug cessation, monitor for withdrawals Chronic back pain/myalgias -? History of chronic pain -Due to polysubstance abuse discussed pain management with Tylenol, ibuprofen , baclofen, and Lidoderm patch. -Encourage patient to try baclofen. Urinary hesitancy -UA collected on 11/19 with no culture indicated, denies any dysuria. -Started on Flomax with improvement in symptoms. Hypokalemia, resolved Hypertension, stable without medications for the moment, continue to monitor. GERD -Start Pepcid twice a day DVT prophylaxis-ambulation Discussed with patient and nurse. Wallace Troncoso Nov 21, 2017 13:06
[2017-11-21 17:49] VITALS: BP 111/69; PULSE 58; RESP 21; TEMP 98.3; O2SAT 98
[2017-11-21] MEDS: IBUPROFEN 600 MG TAB PO PRN ×2 (19:55→21:05)
[2017-11-21] MEDS: REMOVE OLD PATCH T-DERMAL SCH (21:00)
[2017-11-21] MEDS: REMOVE OLD LIDOCAINE PATCH T-DERMAL SCH (21:00)
[2017-11-22 05:39] VITALS: BP 105/56; PULSE 53; RESP 16; TEMP 97.9; O2SAT 98
[2017-11-22] MEDS: NICOTINE 21 MG/24 HR PATCH T-DERMAL SCH (09:00)
[2017-11-22] MEDS ORDERED: QUEtiapine FUMARATE 300 MG TAB PO SCH (09:00)
[2017-11-22] MEDS: GABAPENTIN 400 MG CAP PO SCH ×2 (10:20→20:27)
[2017-11-22] MEDS: TAMSULOSIN HCL 0.4 MG CAP PO SCH (10:20)
[2017-11-22] MEDS: levETIRAcetam 500 MG TAB PO SCH ×2 (10:20→20:25)
[2017-11-22] MEDS: FAMOTIDINE 20 MG TAB PO SCH ×2 (10:22→20:25)
[2017-11-22] MEDS: LIDOCAINE HCL 5% PATCH T-DERMAL SCH (10:23)
--- NOTE | 2017-11-22 11:18 | HHI.PR ---
Subjective Remarks Follow-up visit for attempted heroin overdose, chronic pain, urinary hesitancy. Patient is seen and examined resting in his room. He reports "I slept pretty good last night, I had a couple of dreams". He continues to complain of lower back pain as well as chills. Denies any fever, cough, SOB, N/V/D. I discussed with patient asking for PRN Baclofen for pain as he has only used one dose of this medication. Objective Vitals Vital Signs Date Time Temp Pulse Resp B/P (MAP) Pulse Ox O2 Delivery O2 Flow Rate FiO2 11/22/17 05:39 97.9 53 16 105/56 (72) 98 11/21/17 17:49 98.3 58 21 111/69 (83) 98 Result Diagram: 11/18/17 7513 11/20/17 0750 Imaging Last Impressions Chest X-Ray 11/18/17 2309 Signed Impressions: CONCLUSION: No acute cardiopulmonary disease identified. Objective Remarks GENERAL: male in no acute distress. SKIN:Cool and dry. HEAD: Normocephalic. EYES: Pupils equal round. No scleral icterus. No injection or drainage. ENT: Nose without bleeding. Airway patent. NECK: Trachea midline. CARDIOVASCULAR: Regular rate and rhythm without murmurs, gallops, or rubs. RESPIRATORY: Clear to auscultation. Breath sounds equal bilaterally. No wheezes , rales, or rhonchi. GASTROINTESTINAL: Abdomen soft, non-tender, nondistended. MUSCULOSKELETAL: Extremities without clubbing, cyanosis, or edema. Moves all extremities without difficulty. NEUROLOGICAL: Awake and alert. No cranial nerve deficits. Motor and sensory grossly within normal limits. Normal speech. A/P Assessment and Plan 47-year-old male with past medical history significant for hypertension, enlarged prostate, GERD, chronic back pain, schizophrenia, bipolar disorder, and PTSD who presented to the emergency department following an attempted overdose and subsequently placed under Alves act. [facility] has been consulted to assist with medical management along with treatment of patient's chronic pain and myalgias. Heroin OD Polysubstance abuse -Treatment plan per psychiatry greatly appreciated -Discussed the importance of drug cessation, monitor for withdrawals, possibly reason behind his reported chills Chronic back pain/myalgias -? History of chronic pain -Due to polysubstance abuse discussed pain management with Tylenol, ibuprofen , baclofen, and Lidoderm patch. -Encourage patient to try baclofen, will increase dose to 20mg Urinary hesitancy -UA collected on 11/19 with no culture indicated, denies any dysuria. -Continue Flomax Hypokalemia, resolved Hypertension, stable without medications for the moment, continue to monitor. GERD -Start Pepcid twice a day DVT prophylaxis-ambulation Discussed with patient. Wallace Troncoso Nov 22, 2017 11:18
--- NOTE | 2017-11-22 12:01 | HHI.PYPN ---
Subjective Chief Complaint: Reported suicidal overdose Remarks Patient seen and examined with nurse. Chart reviewed. Case discussed with nursing staff. On my examination today, patient remains dysphoric. He is secluding in his room. He reports that he is doing so because he is experiencing command auditory hallucinations to hurt others. He has no specific victim in mind and denies any violent or homicidal intent. He reports that he did sleep a little better with increased dose of Seroquel at HS. denies side effects from medications. Continues to complain of chronic back pain. No other physical complaints. Review of Systems Except as stated in HPI: all other systems reviewed are Neg Mental Status Examination Appearance: Appropriate Consciousness: Alert Orientation: x4 Motor Activity: Other (No abnormal motor movements noted) Speech: Unremarkable Language: Adequate Fund of Knowledge: Adequate Attention and Concentration: Easily Distracted Memory: Unremarkable (Grossly intact on clinical exam) Mood: Other (Dysphoric) Affect: Other (Restricted) Thought Process & Associations: Intact, Logical, Linear Thought Content: Appropriate Hallucination Type: Auditory (Reported CAH to hurt others. Does not appear internally stimulated.) Delusion Type: None Suicidal Ideation: No Suicidal Plan: No Suicidal Intention: No Homicidal Ideation: Yes (vague) Homicidal Plan: No Homicidal Intention: No Insight: Adequate Judgment: Adequate Results Labs Labs reviewed. Vitals/IOs Vital Signs Date Time Temp Pulse Resp B/P (MAP) Pulse Ox O2 Delivery O2 Flow Rate FiO2 11/22/17 05:39 97.9 53 16 105/56 (72) 98 11/19/17 17:15 Room Air Assessment & Plan Problem List: (1) Adjustment disorder with mixed disturbance of emotions and conduct ICD Codes: F43.25 - Adjustment disorder with mixed disturbance of emotions and conduct (2) Polysubstance dependence ICD Codes: F19.20 - Other psychoactive substance dependence, uncomplicated Assessment & Plan Inadequate response to current therapy. Titrate Seroquel to 400mg BID to target reported psychotic symptoms. Add Cymbalta 40mg daily to target dysphoria with plans to titrate to effect. Continue to monitor on lower acuity unit with low threshold to transfer to higher acuity unit should patient's behavior deteriorate in response to reported command auditory hallucinations. Hospitalist input noted and appreciated. Continue other medications and care as ordered. I have advised the patient that I will be out of the office next week. Justification for Cont. Inpt. Medication changes. 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 Monitoring for impairment in safety. High risk for decompensation in less restrictive environment. Discharge Planning Pending psychiatric stabilization. Possible discharge after the weekend. Request HC Surrog/Guard Advoc?: No Henry Khan MD Nov 22, 2017 12:01
[2017-11-22 17:28] VITALS: BP 108/57; PULSE 80; RESP 19; TEMP 98.2; O2SAT 100
[2017-11-22] MEDS: REMOVE OLD LIDOCAINE PATCH T-DERMAL SCH (20:26)
[2017-11-22] MEDS: QUEtiapine FUMARATE 300 MG TAB PO SCH (20:26)
[2017-11-22] MEDS: REMOVE OLD PATCH T-DERMAL SCH (20:36)
[2017-11-23 05:20] VITALS: BP 116/61; PULSE 58; RESP 16; TEMP 98.9; O2SAT 96
[2017-11-23] MEDS: QUEtiapine FUMARATE 200 MG TAB PO SCH ×2 (08:33→20:33)
[2017-11-23] MEDS: GABAPENTIN 400 MG CAP PO SCH ×2 (08:33→20:34)
[2017-11-23] MEDS: TAMSULOSIN HCL 0.4 MG CAP PO SCH (08:33)
[2017-11-23] MEDS: FAMOTIDINE 20 MG TAB PO SCH ×2 (08:34→20:34)
[2017-11-23] MEDS: levETIRAcetam 500 MG TAB PO SCH ×2 (08:34→20:33)
[2017-11-23] MEDS: DULoxetine HCl DR 20 MG CAP PO SCH (08:34)
[2017-11-23] MEDS: LIDOCAINE HCL 5% PATCH T-DERMAL SCH (08:37)
[2017-11-23] MEDS: NICOTINE 21 MG/24 HR PATCH T-DERMAL SCH (08:38)
[2017-11-23] MEDS: IBUPROFEN 600 MG TAB PO PRN ×2 (11:05→20:37)
[2017-11-23] MEDS: DOCUSATE SODIUM 50 MG/SENNA 8.6 MG TAB PO SCH ×2 (11:05→20:34)
[2017-11-23] MEDS: BACLOFEN 20 MG TAB PO PRN ×2 (11:05→20:34)
--- NOTE | 2017-11-23 12:01 | HHI.PYPN ---
Subjective Chief Complaint: Reported suicidal overdose Remarks Patient was seen and case discussed with nursing. Patient has passive suicidal ideation without any intent or plan. He feels hopeless towards the future. Minimizes his history of drug use. He is eating and sleeping well. Compliant with medications. No psychotic symptoms were elicited Mental Status Examination Appearance: Appropriate Consciousness: Alert Orientation: x4 Motor Activity: Other (No abnormal motor movements noted) Speech: Unremarkable Language: Adequate Fund of Knowledge: Adequate Attention and Concentration: Easily Distracted Memory: Unremarkable (Grossly intact on clinical exam) Mood: Other (Dysphoric) Affect: Other (Restricted) Thought Process & Associations: Intact, Logical, Linear Thought Content: Appropriate Hallucination Type: Auditory (Reported CAH to hurt others. Does not appear internally stimulated.) Delusion Type: None Suicidal Ideation: Yes (Passive) Suicidal Plan: No Suicidal Intention: No Homicidal Ideation: No Homicidal Plan: No Homicidal Intention: No Insight: Adequate Judgment: Adequate Results Vitals/IOs Vital Signs Date Time Temp Pulse Resp B/P (MAP) Pulse Ox O2 Delivery O2 Flow Rate FiO2 11/23/17 05:20 98.9 58 16 116/61 (79) 96 11/19/17 17:15 Room Air Assessment & Plan Problem List: (1) Adjustment disorder with mixed disturbance of emotions and conduct ICD Codes: F43.25 - Adjustment disorder with mixed disturbance of emotions and conduct (2) Polysubstance dependence ICD Codes: F19.20 - Other psychoactive substance dependence, uncomplicated Assessment & Plan Continue current treatment plan Justification for Cont. Inpt. Patient would decompensate in a less restrictive setting Request HC Surrog/Guard Advoc?: No Larry Munroe DO Nov 23, 2017 12:01
--- NOTE | 2017-11-23 14:47 | HHI.PR ---
Subjective Remarks Follow-up visit for attempted heroin overdose, and chronic pain. Patient was seen and examined around 11am today. Spoke with nurse who reports patient has been seclusive in his room and has also been sleeping most of the morning patient has made any complaints per nurse. He is seen ambulating without difficulties in the day room getting something to drink. We talk and I examine in his room. He reports he has been sleeping, but knows he is not ready to go has he will continue see and hear her girlfriend. Patient also reports some nausea, and chills, but no vomiting. He denies any fevers, SOB, cough or dysuria. He continues to complain of back pain, when I discuss with him regarding PRN Baclofen he tells me he has told the nurse, but that he has not been receiving anything for this. Once again nurse did not report that patient had made complaints regarding pain. Patient also states that he thought he was getting this medication automatically, because at home he would take his pain medication on a scheduled basis. Objective Vitals Vital Signs Date Time Temp Pulse Resp B/P (MAP) Pulse Ox O2 Delivery O2 Flow Rate FiO2 11/23/17 05:20 98.9 58 16 116/61 (79) 96 11/22/17 17:28 98.2 80 19 108/57 (74) 100 Result Diagram: 11/20/17 0750 Imaging Last Impressions Chest X-Ray 11/18/17 2309 Signed Impressions: CONCLUSION: No acute cardiopulmonary disease identified. Objective Remarks GENERAL: male in no acute distress. SKIN:Cool and dry. HEAD: Normocephalic. EYES: Pupils equal round. No scleral icterus. No injection or drainage. ENT: Nose without bleeding. Airway patent. NECK: Trachea midline. CARDIOVASCULAR: Regular rate and rhythm without murmurs, gallops, or rubs. RESPIRATORY: Clear to auscultation. Breath sounds equal bilaterally. No wheezes , rales, or rhonchi. GASTROINTESTINAL: Abdomen soft, non-tender, nondistended. MUSCULOSKELETAL: Extremities without clubbing, cyanosis, or edema. Moves all extremities without difficulty. NEUROLOGICAL: Awake and alert. No cranial nerve deficits. Motor and sensory grossly within normal limits. Normal speech. A/P Assessment and Plan 47-year-old male with past medical history significant for hypertension, enlarged prostate, GERD, chronic back pain, schizophrenia, bipolar disorder, and PTSD who presented to the emergency department following an attempted overdose and subsequently placed under Alves act. [facility] has been consulted to assist with medical management along with treatment of patient's chronic pain and myalgias. Heroin OD Polysubstance abuse -Treatment plan per psychiatry greatly appreciated -Discussed the importance of drug cessation, monitor for withdrawals, possibly reason behind his reported chills Chronic back pain/myalgias -? History of chronic pain -Due to polysubstance abuse discussed pain management with Tylenol, ibuprofen , baclofen, and Lidoderm patch. -PRN Baclofen 20mg TID, patient not making pain complaints to nurse, however will complain of pain to me. Discussed this is a PRN medication, this has been discussed with patient on prior visits. Urinary hesitancy -UA collected on 11/19 with no culture indicated, denies any dysuria. -Continue Flomax Hypokalemia, resolved Hypertension, stable without medications for the moment, continue to monitor. GERD -Continue Pepcid twice a day DVT prophylaxis-ambulation Discussed with patient and nurse. Wallace Troncoso Nov 23, 2017 14:47
[2017-11-23 17:13] VITALS: BP 119/66; PULSE 75; RESP 16; TEMP 97.6; O2SAT 98
[2017-11-23] MEDS: diphenhydrAMINE HCL 50 MG CAP PO PRN (20:33)
[2017-11-23] MEDS: REMOVE OLD PATCH T-DERMAL SCH (21:00)
[2017-11-23] MEDS: REMOVE OLD LIDOCAINE PATCH T-DERMAL SCH (21:00)
[2017-11-24 06:40] VITALS: BP 117/66; PULSE 55; RESP 18; TEMP 97.5; O2SAT 98
[2017-11-24] MEDS: LIDOCAINE HCL 5% PATCH T-DERMAL SCH (09:00)
[2017-11-24] MEDS: NICOTINE 21 MG/24 HR PATCH T-DERMAL SCH (09:00)
[2017-11-24] MEDS: levETIRAcetam 500 MG TAB PO SCH ×2 (09:09→21:11)
[2017-11-24] MEDS: DULoxetine HCl DR 20 MG CAP PO SCH (09:09)
[2017-11-24] MEDS: GABAPENTIN 400 MG CAP PO SCH ×2 (09:09→21:11)
[2017-11-24] MEDS: QUEtiapine FUMARATE 200 MG TAB PO SCH ×2 (09:10→21:11)
[2017-11-24] MEDS: TAMSULOSIN HCL 0.4 MG CAP PO SCH (09:10)
[2017-11-24] MEDS: FAMOTIDINE 20 MG TAB PO SCH ×2 (09:10→21:11)
[2017-11-24] MEDS: DOCUSATE SODIUM 50 MG/SENNA 8.6 MG TAB PO SCH ×2 (09:10→21:00)
--- NOTE | 2017-11-24 10:22 | HHI.PYPN ---
Subjective Chief Complaint: Reported suicidal overdose Remarks Patient was seen and case discussed with nursing. Patient remains blunted and seclusive to his room. He is having recurrent hallucinations of his ex -girlfriend. Says he sees shadows. He has passive suicidal ideation. Mood is depressed. But he denies suicidal intent or plan. Mental Status Examination Appearance: Appropriate Consciousness: Alert Orientation: x4 Motor Activity: Other (No abnormal motor movements noted) Speech: Unremarkable Language: Adequate Fund of Knowledge: Adequate Attention and Concentration: Easily Distracted Memory: Unremarkable (Grossly intact on clinical exam) Mood: Sad Affect: Other (Restricted) Thought Process & Associations: Intact, Logical, Linear Thought Content: Appropriate Hallucination Type: Auditory (Reported CAH to hurt others. Does not appear internally stimulated.) Delusion Type: None Suicidal Ideation: Yes (Passive) Suicidal Plan: No Suicidal Intention: No Homicidal Ideation: No Homicidal Plan: No Homicidal Intention: No Insight: Adequate Judgment: Adequate Results Vitals/IOs Vital Signs Date Time Temp Pulse Resp B/P (MAP) Pulse Ox O2 Delivery O2 Flow Rate FiO2 11/24/17 06:40 97.5 55 18 117/66 (83) 98 Assessment & Plan Problem List: (1) Adjustment disorder with mixed disturbance of emotions and conduct ICD Codes: F43.25 - Adjustment disorder with mixed disturbance of emotions and conduct (2) Polysubstance dependence ICD Codes: F19.20 - Other psychoactive substance dependence, uncomplicated Assessment & Plan Continue current treatment plan Justification for Cont. Inpt. Patient would decompensate in a less restrictive setting Request HC Surrog/Guard Advoc?: No Larry Munroe DO Nov 24, 2017 10:22
--- NOTE | 2017-11-24 13:10 | HHI.PR ---
Subjective Remarks Follow-up for back pain, overdose. Patient seen eating lunch in the day room. He reports continued low back pain, worse on the lumbar spinous processes with radiation to the right lumbar paraspinous muscles, described as a constant 8/10 throbbing pains. He reports minimal relief with Lidoderm patch and baclofen. The patient admits to recent IV drug use within the past month. He states his back pain has been getting worse than his usual chronic pains. He denies fevers but does report chills and sweats at times. Denies any chest pain or shortness of breath. Denies any other medical complaints at this time. Objective Vitals Vital Signs Date Time Temp Pulse Resp B/P (MAP) Pulse Ox O2 Delivery O2 Flow Rate FiO2 11/24/17 06:40 97.5 55 18 117/66 (83) 98 11/23/17 21:37 16 11/23/17 17:13 97.6 75 16 119/66 (83) 98 Result Diagram: 11/20/17 0750 Imaging Last Impressions Chest X-Ray 11/18/17 2309 Signed Impressions: CONCLUSION: No acute cardiopulmonary disease identified. Objective Remarks GENERAL: Well-nourished, well-developed middle-aged male patient in [facility]. SKIN: Warm and dry. No rash. HEENT: Normocephalic. Atraumatic. Pupils equal and round. Mucous membranes pink and moist. NECK: Supple. Trachea midline. CARDIOVASCULAR: Regular rate and rhythm. No murmur appreciated. RESPIRATORY: No accessory muscle use. Clear to auscultation. Breath sounds equal bilaterally. GASTROINTESTINAL: Abdomen soft, non-tender, nondistended. Normoactive bowel sounds x4. MUSCULOSKELETAL: No obvious deformities. Extremities without clubbing, cyanosis , or edema. Tender to palpation around L4-5 spinous processes and into the right lumbar paraspinous muscles. NEUROLOGICAL: Awake and alert. No obvious cranial nerve deficits. Motor grossly within normal limits. Moving all extremities spontaneously. Normal speech. Medications and IVs Current Medications Medications (Trade) Dose Ordered Sig/Jamshid Route Start Time Stop Time Status Last Admin (Tylenol) 650 mg Q4H PRN PO 11/19/17 17:30 11/20/17 08:43 (Milk Of Magnesia Liq) 30 ml DAILY PRN PO 11/19/17 17:30 (Mag-Al Plus Susp Liq) 30 ml Q6H PRN PO 11/19/17 17:30 (Habitrol 21 Mg Patch.24 Hr) 1 patch DAILY T-DERMAL 11/19/17 17:30 Miscellaneous Information 1 HS T-DERMAL 11/19/17 21:00 11/22/17 20:36 (Neurontin) 400 mg BID PO 11/20/17 10:15 11/24/17 09:09 (Keppra) 1,000 mg BID PO 11/20/17 10:15 11/24/17 09:09 (Atarax) 50 mg Q6H PRN PO 11/20/17 10:15 (Benadryl) 50 mg HS PRN PO 11/20/17 20:30 11/23/17 20:33 (Romazicon Inj) 0.2 mg Q1M PRN IV PUSH 11/20/17 10:15 (Ativan) 1 mg Q4H PRN PO 11/20/17 10:15 (Ativan Inj) 1 mg Q4H PRN IM 11/20/17 10:15 (Ativan) 2 mg Q2H PRN PO 11/20/17 10:15 (Ativan Inj) 2 mg Q2H PRN IM 11/20/17 10:15 (Ativan Inj) 2 mg Q1H PRN IM 11/20/17 10:15 (Ativan Inj) 2 mg Q15M PRN IM 11/20/17 10:15 (Catapres) 0.1 mg Q8HR PRN PO 11/20/17 12:15 (Zofran Odt) 4 mg Q6H PRN PO 11/20/17 12:15 (Imodium) 2 mg Q4H PRN PO 11/20/17 12:15 (Motrin) 600 mg Q8H PRN PO 11/20/17 16:45 11/23/17 20:37 (Lidoderm 5% Patch.12 Hr) 1 patch DAILY T-DERMAL 11/21/17 09:00 11/23/17 08:37 (Pepcid) 10 mg BID PO 11/20/17 21:00 11/24/17 09:10 (Flomax) 0.4 mg DAILY PO 11/21/17 09:00 11/24/17 09:10 (Pill Splitter) 1 ea UNSCH PRN OTHER 11/20/17 17:30 Miscellaneous Information 1 Q24H T-DERMAL 11/20/17 21:00 (SEROquel) 400 mg DAILY PO 11/23/17 09:00 11/24/17 09:10 (Cymbalta Dr) 40 mg DAILY PO 11/23/17 09:00 11/24/17 09:09 (Lioresal) 20 mg Q8HR PRN PO 11/22/17 16:30 11/23/17 20:34 (Shonda-Colace) 1 tab BID PO 11/23/17 11:00 11/24/17 09:10 (SEROquel) 400 mg HS PO 11/23/17 21:00 11/23/17 20:33 A/P Assessment and Plan 47-year-old male with past medical history significant for hypertension, enlarged prostate, GERD, chronic back pain, schizophrenia, bipolar disorder, and PTSD who presented to the emergency department following an attempted overdose and subsequently placed under Alves act. [facility] has been consulted to assist with medical management along with treatment of patient's chronic pain and myalgias. Heroin OD, Polysubstance abuse -Continue management per psychiatry, greatly appreciated -Discussed the importance of drug cessation, monitor for withdrawals Acute on Chronic back pain with myalgias: patient reporting low back pain worse than his usual chronic pain -With hx of recent IVDU, need to rule out discitis/osteo- check CBC, ESR, CRP , and lumbar spine MRI w/&w/out contrast -Due to polysubstance abuse, avoid opiates and continue pain management with Tylenol, ibuprofen, baclofen, and Lidoderm patch. -Monitor for improvement Urinary hesitancy -UA 11/19 unremarkable, no culture indicated, denies any dysuria. -Continue Flomax Hypokalemia, resolved Hypertension, stable without medications for the moment, continue to monitor. GERD-Continue Pepcid twice a day DVT prophylaxis-ambulation Helena Hooks PA-C Nov 24, 2017 1:10 pm
[2017-11-24 13:13] LABS: AUTOMATED NEUTROPHIL # 4.5 TH/MM3 (1.8-7.7); BASOPHIL # 0.1 TH/MM3 (0-0.2); BASOPHIL % 1.1 % (0.0-2.0); EOSINOPHIL # 0.4 TH/MM3 (0-0.4); EOSINOPHIL % 6.2 % (0.0-4.0); HEMATOCRIT 41.1 % (39.0-51.0); HEMOGLOBIN 13.6 GM/DL (13.0-17.0); LYMPH % 24.4 % (9.0-44.0); LYMPHOCYTE # 1.8 TH/MM3 (1.0-4.8); MEAN CELL VOLUME 84.1 FL (80.0-100.0); MEAN CORPUSCULAR HEMOGLOBIN 27.8 PG (27.0-34.0); MEAN CORPUSCULAR HGB CONC 33.1 % (32.0-36.0); MONO % 6.2 % (0.0-8.0); MONOCYTE # 0.4 TH/MM3 (0-0.9); NEUT % 62.1 % (16.0-70.0); PLATELET COUNT 254 TH/MM3 (150-450); RED BLOOD COUNT 4.89 MIL/MM3 (4.50-5.90); RED CELL DISTRIBUTION WIDTH 15.4 % (11.6-17.2); WHITE BLOOD COUNT 7.2 TH/MM3 (4.0-11.0)
[2017-11-24 13:38] LABS: C-REACTIVE PROTEIN LESS THAN 0.29 MG/DL (0.00-0.30)
[2017-11-24] MEDS ORDERED: GADODIAMIDE PF 287 MG/ML 20 ML VIAL (for RAD MRI) IVCONTRAST ONE (14:12)
--- NOTE | 2017-11-24 15:00 | RADRPT ---
EXAM DATE: 11/24/2017 2:43 PM EDT AGE/SEX: 47 years / Male INDICATIONS: Osteomyelitis. Low back pain. CLINICAL DATA: This is the patient's initial encounter. Patient reports that signs and symptoms have been present for 4 - 6 days and indicates a pain score of 4/10. MEDICAL/SURGICAL HISTORY: None. None. COMPARISON: No prior exams available for comparison. TECHNIQUE: Multiplanar, multisequence MRI examination of the lumbar spine was performed without and with 18cc ml Omniscan (gadodiamide) contrast as a single exam dose. FINDINGS: The most caudal-appearing lumbar vertebra is numbered as L5. Vertebra: Homogeneous signal. Normal alignment. Conus: Normal level and configuration. Post Contrast: No abnormal areas of contrast enhancement are seen in the vertebral bodies, nerve arthur ts, or dura. T12-L1: The thecal sac has a normal diameter. No evidence of disc bulge or protrusion. The neural foramina are patent bilaterally. L1-L2: The thecal sac has a normal diameter. No evidence of disc bulge or protrusion. The neural foramina are patent bilaterally. L2-L3: The thecal sac has a normal diameter. No evidence of disc bulge or protrusion. The neural foramina are patent bilaterally. L3-L4: The thecal sac has a normal diameter. No evidence of disc bulge or protrusion. The neural foramina are patent bilaterally. L4-L5: Mild broad-based bulging of the disc causes mild flattening the ventral margin of the thecal sac. There is extension into the neural foramen on both sides with loss of delineation of the fat in terface in the far lateral position bilaterally. L5-S1: The thecal sac has a normal diameter. No evidence of disc bulge or protrusion. The neural foramina are patent bilaterally. CONCLUSION: 1. Mild broad-based bulging of the L4-5 disc with evidence of far lateral mild neural impingement bi laterally. No central protrusion seen. 2. No abnormal areas of enhancement in the vertebral bodies or interspaces. Electronically signed by: Emil Saldana MD 11/24/2017 2:59 PM EDT
[2017-11-24 16:55] VITALS: BP 131/60; PULSE 65; RESP 18; TEMP 97.6; O2SAT 99
[2017-11-24] MEDS: BACLOFEN 20 MG TAB PO PRN (18:07)
[2017-11-24] MEDS: REMOVE OLD PATCH T-DERMAL SCH (21:00)
[2017-11-24] MEDS: REMOVE OLD LIDOCAINE PATCH T-DERMAL SCH (21:00)
[2017-11-24] MEDS: diphenhydrAMINE HCL 50 MG CAP PO PRN (21:11)
[2017-11-25 06:00] VITALS: BP 108/61; PULSE 62; RESP 18; TEMP 97.7; O2SAT 98
[2017-11-25] MEDS: TAMSULOSIN HCL 0.4 MG CAP PO SCH (08:25)
[2017-11-25] MEDS: QUEtiapine FUMARATE 200 MG TAB PO SCH ×2 (08:25→20:35)
[2017-11-25] MEDS: GABAPENTIN 400 MG CAP PO SCH ×2 (08:25→20:35)
[2017-11-25] MEDS: FAMOTIDINE 20 MG TAB PO SCH ×2 (08:25→20:35)
[2017-11-25] MEDS: DULoxetine HCl DR 20 MG CAP PO SCH (08:25)
[2017-11-25] MEDS: levETIRAcetam 500 MG TAB PO SCH ×2 (08:25→20:35)
[2017-11-25] MEDS: DOCUSATE SODIUM 50 MG/SENNA 8.6 MG TAB PO SCH ×2 (08:25→20:35)
[2017-11-25] MEDS: LIDOCAINE HCL 5% PATCH T-DERMAL SCH (08:26)
[2017-11-25] MEDS: NICOTINE 21 MG/24 HR PATCH T-DERMAL SCH (08:26)
[2017-11-25] MEDS: IBUPROFEN 600 MG TAB PO PRN (09:04)
[2017-11-25] MEDS: BACLOFEN 20 MG TAB PO PRN ×2 (09:04→21:11)
--- NOTE | 2017-11-25 11:59 | HHI.PR ---
Subjective Remarks Follow-up for back pain, overdose. Patient is seen sitting at bedside. He states his back pain is actually improved compared to yesterday. He states he was having trouble walking yesterday, but is getting around okay today. He states he used to see pain management in the past and plans to see them when he is released. He otherwise denies any fever/chills, chest pain, palpitations, shortness of breath, abdominal pain, nausea/vomiting, diarrhea, or urinary complaints. Objective Vitals Vital Signs Date Time Temp Pulse Resp B/P (MAP) Pulse Ox O2 Delivery O2 Flow Rate FiO2 11/25/17 06:00 97.7 62 18 108/61 (77) 98 11/24/17 16:55 97.6 65 18 131/60 (83) 99 Result Diagram: 11/24/17 1243 Imaging Last Impressions Lumbar Spine MRI 11/24/17 0000 Signed Impressions: CONCLUSION: 1. Mild broad-based bulging of the L4-5 disc with evidence of far lateral mild neural impingement bilaterally. No central protrusion seen. 2. No abnormal areas of enhancement in the vertebral bodies or interspaces. Chest X-Ray 11/18/17 2309 Signed Impressions: CONCLUSION: No acute cardiopulmonary disease identified. Objective Remarks GENERAL: Well-nourished, well-developed middle-aged male patient in [facility]. SKIN: Warm and dry. No rash. HEENT: Normocephalic. Atraumatic. Pupils equal and round. Mucous membranes pink and moist. CARDIOVASCULAR: Regular rate and rhythm. No murmur appreciated. RESPIRATORY: No accessory muscle use. Clear to auscultation. Breath sounds equal bilaterally. GASTROINTESTINAL: Abdomen soft, non-tender, nondistended. Normoactive bowel sounds x4. MUSCULOSKELETAL: No obvious deformities. Extremities without clubbing, cyanosis , or edema. Lumbar spine nontender to palpation today. NEUROLOGICAL: Awake and alert. No obvious cranial nerve deficits. Motor grossly within normal limits. 5/5 strength of bilateral upper and lower extremities. Distal lower extremity sensation equal and intact. Normal speech. Medications and IVs Current Medications Medications (Trade) Dose Ordered Sig/Jamshid Route Start Time Stop Time Status Last Admin (Tylenol) 650 mg Q4H PRN PO 11/19/17 17:30 11/20/17 08:43 (Milk Of Magnesia Liq) 30 ml DAILY PRN PO 11/19/17 17:30 (Mag-Al Plus Susp Liq) 30 ml Q6H PRN PO 11/19/17 17:30 (Habitrol 21 Mg Patch.24 Hr) 1 patch DAILY T-DERMAL 11/19/17 17:30 Miscellaneous Information 1 HS T-DERMAL 11/19/17 21:00 11/22/17 20:36 (Neurontin) 400 mg BID PO 11/20/17 10:15 11/25/17 08:25 (Keppra) 1,000 mg BID PO 11/20/17 10:15 11/25/17 08:25 (Atarax) 50 mg Q6H PRN PO 11/20/17 10:15 (Benadryl) 50 mg HS PRN PO 11/20/17 20:30 11/24/17 21:11 (Romazicon Inj) 0.2 mg Q1M PRN IV PUSH 11/20/17 10:15 (Ativan) 1 mg Q4H PRN PO 11/20/17 10:15 (Ativan Inj) 1 mg Q4H PRN IM 11/20/17 10:15 (Ativan) 2 mg Q2H PRN PO 11/20/17 10:15 (Ativan Inj) 2 mg Q2H PRN IM 11/20/17 10:15 (Ativan Inj) 2 mg Q1H PRN IM 11/20/17 10:15 (Ativan Inj) 2 mg Q15M PRN IM 11/20/17 10:15 (Catapres) 0.1 mg Q8HR PRN PO 11/20/17 12:15 (Zofran Odt) 4 mg Q6H PRN PO 11/20/17 12:15 (Imodium) 2 mg Q4H PRN PO 11/20/17 12:15 (Motrin) 600 mg Q8H PRN PO 11/20/17 16:45 11/25/17 09:04 (Lidoderm 5% Patch.12 Hr) 1 patch DAILY T-DERMAL 11/21/17 09:00 11/23/17 08:37 (Pepcid) 10 mg BID PO 11/20/17 21:00 11/25/17 08:25 (Flomax) 0.4 mg DAILY PO 11/21/17 09:00 11/25/17 08:25 (Pill Splitter) 1 ea UNSCH PRN OTHER 11/20/17 17:30 Miscellaneous Information 1 Q24H T-DERMAL 11/20/17 21:00 (SEROquel) 400 mg DAILY PO 11/23/17 09:00 11/25/17 08:25 (Cymbalta Dr) 40 mg DAILY PO 11/23/17 09:00 11/25/17 08:25 (Lioresal) 20 mg Q8HR PRN PO 11/22/17 16:30 11/25/17 09:04 (Shonda-Colace) 1 tab BID PO 11/23/17 11:00 11/25/17 08:25 (SEROquel) 400 mg HS PO 11/23/17 21:00 11/24/17 21:11 A/P Assessment and Plan 47-year-old male with past medical history significant for hypertension, enlarged prostate, GERD, chronic back pain, schizophrenia, bipolar disorder, and PTSD who presented to the emergency department following an attempted overdose and subsequently placed under Alves act. [facility] has been consulted to assist with medical management along with treatment of patient's chronic pain and myalgias. Heroin OD, Polysubstance abuse -Continue management per psychiatry, greatly appreciated -Discussed the importance of drug cessation, monitor for withdrawals Acute on Chronic back pain with myalgias: patient reporting low back pain worse than his usual chronic pain -With hx of recent IVDU, need to rule out discitis/osteo- No leukocytosis, ESR/CRP wnl -Lumbar spine MRI w/&w/out contrast reviewed, shows mild broad based bulge at L4-5 disc with mild lateral neural impingement bilaterally; no central protrusion; no abnormal areas of enhancement in vertebral bodies or interspaces -Due to polysubstance abuse, avoid opiates and continue pain management with Tylenol, ibuprofen, baclofen, and Lidoderm patch. -Symptoms improving, stable, recommend outpatient f/up with pain management as needed -Also encouraged outpatient follow up for physical therapy Urinary hesitancy -UA 11/19 unremarkable, no culture indicated, denies any dysuria. -Continue Flomax Hypertension, stable without medications for the moment, continue to monitor. GERD-Continue Pepcid twice a day DVT prophylaxis-ambulation Discharge Planning Patient is medically stable at this time, will sign off. Continue current pain control regimen. Please reconsult hospitalist as needed if any new issues arise. Thank you very much for this consultation. Helena Hooks PA-C Nov 25, 2017 11:59 am
[2017-11-25 18:22] VITALS: BP 120/68; PULSE 70; RESP 18; TEMP 98.2; O2SAT 97
--- NOTE | 2017-11-25 19:36 | HHI.PYPN ---
Subjective Chief Complaint: Reported suicidal overdose Remarks Reviewed electronic medical record discussed case with staff. Follow-up was conducted in patient's room with nurse present. Patient seems to be improved today from previous reports. He states that he feels "good". He reports that he slept excellent and his appetite has been good. Cautiously optimistic that patient may be stabilizing on the medication. Mental Status Examination Appearance: Appropriate Consciousness: Alert Orientation: x4 Motor Activity: Other (No abnormal motor movements noted) Speech: Unremarkable Language: Adequate Fund of Knowledge: Adequate Attention and Concentration: Easily Distracted Memory: Unremarkable (Grossly intact on clinical exam) Mood: Sad Affect: Other (Restricted) Thought Process & Associations: Intact, Logical, Linear Thought Content: Appropriate Hallucination Type: Auditory (Reported CAH to hurt others. Does not appear internally stimulated.) Delusion Type: None Suicidal Ideation: Yes (Passive) Suicidal Plan: No Suicidal Intention: No Homicidal Ideation: No Homicidal Plan: No Homicidal Intention: No Insight: Adequate Judgment: Adequate Results Vitals/IOs Vital Signs Date Time Temp Pulse Resp B/P (MAP) Pulse Ox O2 Delivery O2 Flow Rate FiO2 11/25/17 18:22 98.2 70 18 120/68 (85) 97 Assessment & Plan Problem List: (1) Adjustment disorder with mixed disturbance of emotions and conduct ICD Codes: F43.25 - Adjustment disorder with mixed disturbance of emotions and conduct (2) Polysubstance dependence ICD Codes: F19.20 - Other psychoactive substance dependence, uncomplicated Assessment & Plan Estimated LOS: Today is the first time patient has reported improved mood. Will reevaluate tomorrow to see if he maintains this euthymic state. Will discuss discharge plan with block and case maker. Days Justification for Cont. Inpt. Moving this patient to a lower level of care would likely result in decompensation. Given that today is the first time he is reported improvement in his symptoms I will reevaluate tomorrow. Request HC Surrog/Guard Advoc?: No Jana Wyman Nov 25, 2017 19:36
[2017-11-25] MEDS: diphenhydrAMINE HCL 50 MG CAP PO PRN (20:35)
[2017-11-25] MEDS: REMOVE OLD LIDOCAINE PATCH T-DERMAL SCH (20:38)
[2017-11-25] MEDS: REMOVE OLD PATCH T-DERMAL SCH (20:38)
[2017-11-26 05:53] VITALS: BP 107/69; PULSE 56; RESP 18; TEMP 98; O2SAT 98
[2017-11-26] MEDS: DULoxetine HCl DR 20 MG CAP PO SCH (08:34)
[2017-11-26] MEDS: QUEtiapine FUMARATE 200 MG TAB PO SCH (08:34)
[2017-11-26] MEDS: levETIRAcetam 500 MG TAB PO SCH (08:34)
[2017-11-26] MEDS: GABAPENTIN 400 MG CAP PO SCH (08:34)
[2017-11-26] MEDS: TAMSULOSIN HCL 0.4 MG CAP PO SCH (08:35)
[2017-11-26] MEDS: DOCUSATE SODIUM 50 MG/SENNA 8.6 MG TAB PO SCH (08:35)
[2017-11-26] MEDS: NICOTINE 21 MG/24 HR PATCH T-DERMAL SCH (08:35)
[2017-11-26] MEDS: FAMOTIDINE 20 MG TAB PO SCH (08:35)
[2017-11-26] MEDS: LIDOCAINE HCL 5% PATCH T-DERMAL SCH (08:38)
[2017-11-26] MEDS: BACLOFEN 20 MG TAB PO PRN (08:43)
[2017-11-26] MEDS: IBUPROFEN 600 MG TAB PO PRN (08:43)
[2017-11-26] MEDS ORDERED: SERO300T PO (09:45)
[2017-11-26] MEDS ORDERED: NEUR400C PO (09:45)
[2017-11-26] MEDS ORDERED: QUET300XR PO (09:45)
[2017-11-26] MEDS ORDERED: LEVE500 PO (09:45)
--- NOTE | 2017-11-26 09:59 | HHI.DS ---
Psychiatry Discharge Summary Inpatient Psychiatric care?: Yes Advance Directive: Yes Mental Health AdvanceDirective: No Health Care Proxy: No Admission Admission Date Nov 19, 2017 at 17:25 Admission Diagnosis: (1) Adjustment disorder with mixed disturbance of emotions and conduct ICD Code: F43.25 - Adjustment disorder with mixed disturbance of emotions and conduct Brief History Mr. Busch is a 47-year-old male who presented to the ED following drug overdose. Overdose was Narcan responsive and patient's urine toxicology was positive for opiates, amphetamines, cocaine and cannabinoids. Patient subsequently told providers that he had had a friend inject him with heroin and maintained that this was a suicidal overdose. He was placed under a Alves act by the ED provider. He was seen by the psychiatric nurse practitioner in the ED. reviewing the electronic medical record, I note the patient was admitted to the inpatient psychiatric unit in 2013 under the care of Dr. Schneider. Patient seen and examined with counselor and nurse. Chart reviewed. Case discussed with nursing staff. On my examination today, the patient is a fairly vague historian. He says that he had a friend inject him with heroin because of passing of his girlfriend, Sasha. He continues to endorse suicidal ideation and says that he would try "the same thing." No reported urge to hurt himself on the inpatient unit. He is somewhat medication seeking for opiates. Complains of depression but affect is fairly full and reactive. Reports visual hallucinations of "shadows" but does not appear internally stimulated. No delusional material. No hypomanic or manic symptoms. Remainder of the psychiatric ROS is negative. No acute physical complaints but does complain of chronic musculoskeletal discomfort. Past psychiatric history: Patient reports previous diagnoses of schizophrenia, bipolar disorder and PTSD. He is not under the care of a psychiatrist. His primary care doctor prescribes his psychotropic medications. He reports that he was psychiatrically admitted most recently over 2 years ago, possibly the admission noted above. He reports previous suicide attempts by trying to get hit by a train and also trying to jump off of a bridge. Substance use apparently features prominently in his previous suicide attempts by his report. Family history: Patient reports family history of mental illness on his mother' s side of the family. He has had a few cousins on his father's side who have completed suicide and there is also one relative on his mother's side who has completed suicide. Chemical dependency history: The patient reports alcohol use of a case of beer a month. He denies a history of DTs or seizures. He endorses cannabis use. He endorses powder cocaine use. He did overdose on heroin prior to admission. Social history: Patient is living with his girlfriend sign and cousin. He has a grade 11 education. He denies any history. Denies any access to guns or firearms. Denies any active legal issues but was jailed until 11/14 on domestic violence charges and also assault charges by his report. Tobacco Use In Past 30 Days: 5 or More Cigarettes/Day Alcohol Use: Monthly or Less Hospital Course Patient was admitted to a locked inpatient unit. Safety precautions were in place throughout his visit. He was followed on a daily basis by a psychiatric provider as well as a correctional counselor/case manager. During the patient's stay his Seroquel dosage was increased and Cymbalta was added to his medication regimen. He has responded well to these changes. He has been observed socializing with the other patients has begun to attend some groups. He is future oriented with plans to return to his home state of [place] once he receives his check. Upon examination today patient is alert and oriented 4. His mood is good his affect is euthymic. He denies suicidal or homicidal ideation as well as auditory or visual hallucinations. There is no indication of internal stimulation or thought blocking. I can elicit no delusional material. He does not appear to be psychotic or manic at this time. I have no reason to believe at this time that he poses an eminent danger to himself or others. Therefore, I believe he has reached maximum benefit of this inpatient admission. He is requesting discharge and states that he intends on returning to his home and the [place]. He plans to follow up with his primary care physician as well as [facility]. He has been counseled to return to this facility if his condition worsens. Results Blood Pressure 107 / 69 Vital Signs Date Time Temp Pulse Resp B/P (MAP) Pulse Ox O2 Delivery O2 Flow Rate FiO2 11/26/17 05:53 98.0 56 18 107/69 (82) 98 Laboratory Tests Test 11/24/17 12:43 Eosinophils (%) (Auto) 6.2 % (0.0-4.0) Total Creatine Kinase 22 U/L (39-308) Laboratory Results Test 11/20/17 07:50 Cholesterol Level 127 MG/DL (120-200) HDL Cholesterol 31.9 MG/DL (40.0-60.0) Hemoglobin A1c 5.2 % (4.3-6.0) LDL Cholesterol 71 MG/DL (0-99) Triglycerides Level 120 MG/DL (42-150) Summary of Procedures n/a Imaging Last Impressions Lumbar Spine MRI 11/24/17 0000 Signed Impressions: CONCLUSION: 1. Mild broad-based bulging of the L4-5 disc with evidence of far lateral mild neural impingement bilaterally. No central protrusion seen. 2. No abnormal areas of enhancement in the vertebral bodies or interspaces. Chest X-Ray 11/18/17 2309 Signed Impressions: CONCLUSION: No acute cardiopulmonary disease identified. Pending results at discharge: No Medications # of Antipsychotic meds at D/C: 1 Approp Antipsych med options 1 - Minimum of three failed multiple trials of monotherapy. 2 - Documented plan to taper to monotherapy due to previous use of multiple meds OR cross-taper in progress at D/C. 3 - Documentation of augmentation of Clozapine. 4 - Justification other than those listed in allowable values 1-3, document here : Discharge Discharge Date: Nov 26, 2017 Discharge Diagnosis: (1) Adjustment disorder with mixed disturbance of emotions and conduct ICD Code: F43.25 - Adjustment disorder with mixed disturbance of emotions and conduct Pt Condition on Discharge: Stable Discharge Disposition: Discharge Home Discharge Instructions Diet Instructions: As Tolerated, No Restrictions Activities you can perform: Regular-No Restrictions Discharge Time <= 30 minutes Mental Status Examination Appearance: Appropriate Consciousness: Alert Orientation: x4 Motor Activity: Other (No abnormal motor movements noted) Speech: Unremarkable Language: Adequate Fund of Knowledge: Adequate Attention and Concentration: Easily Distracted Memory: Unremarkable (Grossly intact on clinical exam) Mood: Sad Affect: Other (Restricted) Thought Process & Associations: Intact, Logical, Linear Thought Content: Appropriate Hallucination Type: Auditory (Reported CAH to hurt others. Does not appear internally stimulated.) Delusion Type: None Suicidal Ideation: Yes (Passive) Suicidal Plan: No Suicidal Intention: No Homicidal Ideation: No Homicidal Plan: No Homicidal Intention: No Insight: Adequate Judgment: Adequate Discharge/Advance Care Plan Health Problems: (1) Adjustment disorder with mixed disturbance of emotions and conduct (2) Polysubstance dependence Goals to promote your health * To prevent worsening of your condition and complications * To maintain your health at the optimal level Directions to meet your goals Take your medications as prescribed Follow your dietary instruction Follow activity as directed Keep your appointments as scheduled Take your immunizations and boosters as scheduled If your symptoms worsen call your PCP, if no PCP go to Urgent Care Center or Emergency Room For 31/12 questions related to your inpatient stay or results of tests pending at discharge, please contact Dr. Jana Wyman at Smoking is Dangerous to Your Health. Avoid second hand smoking Jana Wyman Nov 26, 2017 09:59
== END 2017-11-26 12:00 | disposition home or self-care (01) | DRG 882 ==
LOC: NEPE 22:52 → NEDA 11-19 17:25 → H270 11-19 18:57 → H260 11-20 17:45
PROVIDERS: ADMIT Psychiatry & Neurology Psychiatry; ATTEND Psychiatry & Neurology Psychiatry
DX: F43.25 Adjustment disorder with mixed disturbance of emotions and conduct (principal); I10 Essential (primary) hypertension; F19.20 Other psychoactive substance dependence, uncomplicated; Z81.8 Family history of other mental and behavioral disorders; F17.210 Nicotine dependence, cigarettes, uncomplicated; T40.1X2A Poisoning by heroin, intentional self-harm, initial encounter; K21.9 Gastro-esophageal reflux disease without esophagitis; G89.21 Chronic pain due to trauma; M54.5 Low back pain; N40.1 Benign prostatic hyperplasia with lower urinary tract symptoms; E87.6 Hypokalemia
CPT/HCPCS: 71045; 72158; 80048; 80053; 80061; 80307; 81001; 82550; 82552; 83036; 83690; 83735; 83880; 84484; 85025; 85652; 86140; 93005; 96360; A9579; J7030; Q0163

== ENCOUNTER 2017-11-30 00:06 | Emergency (ER) | payer MEDICAID ==
[~2017-11-30] VITALS: Ht 182.9 cm; Wt 92.7 kg
[~2017-11-30 00:06] MED LIST changes: -CLIN150C14 PO; -IBUP1TAB7 PO
[2017-11-30 00:49] VITALS: BP 144/86; PULSE 66; RESP 16; TEMP 98.4; O2SAT 98
[2017-11-30 02:18] LABS: AUTOMATED NEUTROPHIL # 7.1 TH/MM3 (1.8-7.7); BASOPHIL % 0.2 % (0.0-2.0); EOSINOPHIL # 0.4 TH/MM3 (0-0.4); EOSINOPHIL % 3.6 % (0.0-4.0); HEMATOCRIT 42.8 % (39.0-51.0); HEMOGLOBIN 14.1 GM/DL (13.0-17.0); LYMPH % 29.5 % (9.0-44.0); LYMPHOCYTE # 3.6 TH/MM3 (1.0-4.8); MEAN CELL VOLUME 84.8 FL (80.0-100.0); MEAN CORPUSCULAR HGB CONC 33.1 % (32.0-36.0); MONO % 7.9 % (0.0-8.0); NEUT % 58.8 % (16.0-70.0); PLATELET COUNT 337 TH/MM3 (150-450); RED BLOOD COUNT 5.05 MIL/MM3 (4.50-5.90); RED CELL DISTRIBUTION WIDTH 15.4 % (11.6-17.2); WHITE BLOOD COUNT 12.2 TH/MM3 (4.0-11.0)
[2017-11-30 02:38] LABS: ALBUMIN 4.1 GM/DL (3.4-5.0); ALT (GPT) 20 U/L (12-78); AST (GOT) 15 U/L (15-37); BICARBONATE 23.6 MEQ/L (21.0-32.0); BLOOD UREA NITROGEN 17 MG/DL (7-18); CALCIUM 8.7 MG/DL (8.5-10.1); CHLORIDE 108 MEQ/L (98-107); CREATININE 0.96 MG/DL (0.60-1.30); GLOMERULAR FILTRATION RATE 84 ML/MIN (>89); GLUCOSE,RANDOM 102 MG/DL (74-106); SODIUM (NA) 143 MEQ/L (136-145)
[2017-11-30 02:48] LABS: ALKALINE PHOSPHATASE 89 U/L (45-117); TOTAL BILIRUBIN ADULT 0.4 MG/DL (0.2-1.0); TOTAL PROTEIN 7.5 GM/DL (6.4-8.2)
--- NOTE | 2017-11-30 03:57 | PD ---
HPI Chief Complaint: Psychiatric Symptoms Time Seen by Provider: 01:34 Travel History International Travel<30 days: No Contact w/Intl Traveler<30days: No Traveled to known affect area: No History of Present Illness HPI 47-year-old white male presents emergency department requesting psychological evaluation. He states that he is feeling increasingly depressed and having suicidal thoughts. He states that he is contemplated overdosing on heroin. He states that his significant other last month. Since then he has been having problems coping. He reports that he is compliant with his medications but he does not feel that they are working. He does admit to cocaine abuse as well as IV heroin on occasion. He denies any acute medical complaints other than his depression. No homicidal ideation. No toxic ingestions. PFSH Past Medical History Arthritis: Yes Bipolar Disorder: Yes Anxiety: Yes Depression: Yes Cancer: No Cardiovascular Problems: No Cerebrovascular Accident: No Diabetes: No Diminished Hearing: No Endocrine: No Gastrointestinal Disorders: Yes GERD: Yes Genitourinary: No Hypertension: Yes Immune Disorder: No Musculoskeletal: No Neurologic: Yes Psychiatric: Yes Reproductive: No Respiratory: No Immunizations Current: Yes Migraines: No Seizures: No Tetanus Vaccination: < 5 Years Past Surgical History Abdominal Surgery: No Cardiac Surgery: No Ear Surgery: No Endocrine Surgery: No Eye Surgery: No Genitourinary Surgery: No Gynecologic Surgery: No Neurologic Surgery: No (HX TBI) Oral Surgery: No Thoracic Surgery: No Tonsillectomy: Yes Other Surgery: Yes (hand) Social History Alcohol Use: Yes (DAILY ) Tobacco Use: Yes (1/2 ppd ) Substance Use: Yes (HEROIN , COCAINE, METHAMPHETAMINES, MARIJUANA) Allergies-Medications (Allergen,Severity, Reaction): Coded Allergies: Penicillins (Verified Allergy, Severe, Hives, 11/30/17) morphine (Unverified Allergy, Severe, 11/30/17) penicillin G (Unverified Allergy, Severe, 11/30/17) Reported Meds & Prescriptions Reported Meds & Active Scripts Active Seroquel XR (Quetiapine Fumarate) 300 Mg Tab 600 Mg PO HS Seroquel (Quetiapine Fumarate) 300 Mg Tab 300 Mg PO BID Neurontin (Gabapentin) 400 Mg Cap 400 Mg PO BID Keppra (Levetiracetam) 500 Mg Tab 1,000 Mg PO BID Reported Percocet (Oxycodone-Acetaminophen) 10-325 mg Tab 1 Tab PO Q6H PRN Review of Systems General / Constitutional: No: Fever Eyes: No: Visual changes HENT: No: Headaches Cardiovascular: No: Chest Pain or Discomfort Respiratory: No: Shortness of Breath Gastrointestinal: No: Abdominal Pain Genitourinary: No: Dysuria Musculoskeletal: No: Pain Skin: No Rash Neurologic: No: Weakness Psychiatric: Positive: Depression, Suicidal Ideations, Disorder of Thought, Mood Disorder, Substance Abuse, No: Anxiety, Homicidal Ideation Endocrine: No: Polydipsia Hematologic/Lymphatic: No: Easy Bruising Physical Exam Narrative GENERAL: Well-nourished, well-developed patient. SKIN: Warm and dry. HEAD: Normocephalic and atraumatic. EYES: No scleral icterus. No injection or drainage. ENT: No nasal drainage noted. Mucous membranes pink. Airway patent. NECK: Supple, trachea midline. Moves head freely without obvious discomfort. CARDIOVASCULAR: Regular rate and rhythm without murmurs, gallops, or rubs. RESPIRATORY: Breath sounds equal bilaterally. No accessory muscle use. GASTROINTESTINAL: Abdomen soft, non-tender, nondistended. EXTREMITIES: No cyanosis or edema. BACK: Nontender without obvious deformity. No CVA tenderness. NEURO: Patient is alert and oriented. no sensorimotor deficits. Nonfocal. Normal speech. PSYCH: No delusions. No auditory or visual hallucinations. Data Data Last Documented VS Vital Signs Date Time Temp Pulse Resp B/P (MAP) Pulse Ox O2 Delivery O2 Flow Rate FiO2 11/30/17 00:49 98.4 66 16 144/86 (105) 98 Orders Orders Complete Blood Count With Diff (11/30/17 01:35) Comprehensive Metabolic Panel (11/30/17 01:35) Thyroid Stimulating Hormone (11/30/17 01:35) Psych Screen (11/30/17 01:35) Drug Screen, Random Urine (11/30/17 01:35) Alcohol (Ethanol) (11/30/17 01:35) Labs Laboratory Tests Test 11/30/17 02:04 White Blood Count 12.2 TH/MM3 Red Blood Count 5.05 MIL/MM3 Hemoglobin 14.1 GM/DL Hematocrit 42.8 % Mean Corpuscular Volume 84.8 FL Mean Corpuscular Hemoglobin 28.0 PG Mean Corpuscular Hemoglobin Concent 33.1 % Red Cell Distribution Width 15.4 % Platelet Count 337 TH/MM3 Mean Platelet Volume 8.0 FL Neutrophils (%) (Auto) 58.8 % Lymphocytes (%) (Auto) 29.5 % Monocytes (%) (Auto) 7.9 % Eosinophils (%) (Auto) 3.6 % Basophils (%) (Auto) 0.2 % Neutrophils # (Auto) 7.1 TH/MM3 Lymphocytes # (Auto) 3.6 TH/MM3 Monocytes # (Auto) 1.0 TH/MM3 Eosinophils # (Auto) 0.4 TH/MM3 Basophils # (Auto) 0.0 TH/MM3 CBC Comment DIFF FINAL Differential Comment Blood Urea Nitrogen 17 MG/DL Creatinine 0.96 MG/DL Random Glucose 102 MG/DL Total Protein 7.5 GM/DL Albumin 4.1 GM/DL Calcium Level 8.7 MG/DL Alkaline Phosphatase 89 U/L Aspartate Amino Transf (AST/SGOT) 15 U/L Alanine Aminotransferase (ALT/SGPT) 20 U/L Total Bilirubin 0.4 MG/DL Sodium Level 143 MEQ/L Potassium Level 3.7 MEQ/L Chloride Level 108 MEQ/L Carbon Dioxide Level 23.6 MEQ/L Anion Gap 11 MEQ/L Estimat Glomerular Filtration Rate 84 ML/MIN Thyroid Stimulating Hormone 3rd Gen 2.230 uIU/ML Urine Opiates Screen NEG Urine Barbiturates Screen NEG Urine Amphetamines Screen NEG Urine Benzodiazepines Screen NEG Urine Cocaine Screen POS Urine Cannabinoids Screen NEG Ethyl Alcohol Level 5 MG/DL MDM Medical Decision Making Medical Screen Exam Complete: Yes Emergency Medical Condition: Yes Medical Record Reviewed: Yes Interpretation(s) Laboratory Tests Test 11/30/17 02:04 White Blood Count 12.2 TH/MM3 Red Blood Count 5.05 MIL/MM3 Hemoglobin 14.1 GM/DL Hematocrit 42.8 % Mean Corpuscular Volume 84.8 FL Mean Corpuscular Hemoglobin 28.0 PG Mean Corpuscular Hemoglobin Concent 33.1 % Red Cell Distribution Width 15.4 % Platelet Count 337 TH/MM3 Mean Platelet Volume 8.0 FL Neutrophils (%) (Auto) 58.8 % Lymphocytes (%) (Auto) 29.5 % Monocytes (%) (Auto) 7.9 % Eosinophils (%) (Auto) 3.6 % Basophils (%) (Auto) 0.2 % Neutrophils # (Auto) 7.1 TH/MM3 Lymphocytes # (Auto) 3.6 TH/MM3 Monocytes # (Auto) 1.0 TH/MM3 Eosinophils # (Auto) 0.4 TH/MM3 Basophils # (Auto) 0.0 TH/MM3 CBC Comment DIFF FINAL Differential Comment Blood Urea Nitrogen 17 MG/DL Creatinine 0.96 MG/DL Random Glucose 102 MG/DL Total Protein 7.5 GM/DL Albumin 4.1 GM/DL Calcium Level 8.7 MG/DL Alkaline Phosphatase 89 U/L Aspartate Amino Transf (AST/SGOT) 15 U/L Alanine Aminotransferase (ALT/SGPT) 20 U/L Total Bilirubin 0.4 MG/DL Sodium Level 143 MEQ/L Potassium Level 3.7 MEQ/L Chloride Level 108 MEQ/L Carbon Dioxide Level 23.6 MEQ/L Anion Gap 11 MEQ/L Estimat Glomerular Filtration Rate 84 ML/MIN Thyroid Stimulating Hormone 3rd Gen 2.230 uIU/ML Urine Opiates Screen NEG Urine Barbiturates Screen NEG Urine Amphetamines Screen NEG Urine Benzodiazepines Screen NEG Urine Cocaine Screen POS Urine Cannabinoids Screen NEG Ethyl Alcohol Level 5 MG/DL Differential Diagnosis MDM: High Differential diagnoses: Schizophrenia, schizoaffective disorder, bipolar, anxiety, depression, adjustment reaction, mood disorder NOS, ODD, depressive disorder NOS, dementia, dementia with agitation, psychosis NOS, substance induced mood disorder, DMDD, Asperger syndrome, infection,electrolyte abnormality, malingering. Narrative Course Mental health screening discussed with the patient. Psychiatric screen ordered. Diagnosis Primary Impression: Medical clearance for psychiatric admission Condition: Stable Christopher Hicks Nov 30, 2017 03:56
[2017-11-30 04:32] VITALS: BP 130/70; PULSE 80; RESP 20; O2SAT 97
[2017-11-30 10:03] VITALS: BP 104/61; PULSE 65; RESP 16; O2SAT 99
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
--- NOTE | 2017-11-30 13:29 | PD ---
Physical Exam Date Seen by Provider: Nov 30, 2017 Time Seen by Provider: 13:27 Narrative 47-year-old male previously medically cleared for psychiatric evaluation on a voluntary basis, has been seen and evaluated by psychiatric staff and deemed to be psychiatrically stable for discharge at this time. Patient remains medically stable for discharge. Follow-up will be based on the psychiatric note. Data Data Last Documented VS Vital Signs Date Time Temp Pulse Resp B/P (MAP) Pulse Ox O2 Delivery O2 Flow Rate FiO2 11/30/17 10:03 65 16 104/61 (75) 99 Room Air 11/30/17 00:49 98.4 Orders Orders Complete Blood Count With Diff (11/30/17 01:35) Comprehensive Metabolic Panel (11/30/17 01:35) Thyroid Stimulating Hormone (11/30/17 01:35) Psych Screen (11/30/17 01:35) Drug Screen, Random Urine (11/30/17 01:35) Alcohol (Ethanol) (11/30/17 01:35) Diet Regular Basic (11/30/17 Breakfast) Diet Regular Basic (11/30/17 Lunch) Labs Laboratory Tests Test 11/30/17 02:04 White Blood Count 12.2 TH/MM3 Red Blood Count 5.05 MIL/MM3 Hemoglobin 14.1 GM/DL Hematocrit 42.8 % Mean Corpuscular Volume 84.8 FL Mean Corpuscular Hemoglobin 28.0 PG Mean Corpuscular Hemoglobin Concent 33.1 % Red Cell Distribution Width 15.4 % Platelet Count 337 TH/MM3 Mean Platelet Volume 8.0 FL Neutrophils (%) (Auto) 58.8 % Lymphocytes (%) (Auto) 29.5 % Monocytes (%) (Auto) 7.9 % Eosinophils (%) (Auto) 3.6 % Basophils (%) (Auto) 0.2 % Neutrophils # (Auto) 7.1 TH/MM3 Lymphocytes # (Auto) 3.6 TH/MM3 Monocytes # (Auto) 1.0 TH/MM3 Eosinophils # (Auto) 0.4 TH/MM3 Basophils # (Auto) 0.0 TH/MM3 CBC Comment DIFF FINAL Differential Comment Blood Urea Nitrogen 17 MG/DL Creatinine 0.96 MG/DL Random Glucose 102 MG/DL Total Protein 7.5 GM/DL Albumin 4.1 GM/DL Calcium Level 8.7 MG/DL Alkaline Phosphatase 89 U/L Aspartate Amino Transf (AST/SGOT) 15 U/L Alanine Aminotransferase (ALT/SGPT) 20 U/L Total Bilirubin 0.4 MG/DL Sodium Level 143 MEQ/L Potassium Level 3.7 MEQ/L Chloride Level 108 MEQ/L Carbon Dioxide Level 23.6 MEQ/L Anion Gap 11 MEQ/L Estimat Glomerular Filtration Rate 84 ML/MIN Thyroid Stimulating Hormone 3rd Gen 2.230 uIU/ML Urine Opiates Screen NEG Urine Barbiturates Screen NEG Urine Amphetamines Screen NEG Urine Benzodiazepines Screen NEG Urine Cocaine Screen POS Urine Cannabinoids Screen NEG Ethyl Alcohol Level 5 MG/DL MDM Medical Record Reviewed: Yes Supervised Visit with DELIA: Yes Narrative Course 47-year-old male previously medically cleared for psychiatric evaluation on a voluntary basis, has been seen and evaluated by psychiatric staff and deemed to be psychiatrically stable for discharge at this time. Patient remains medically stable for discharge. Follow-up will be based on the psychiatric note. Diagnosis Primary Impression: Medical clearance for psychiatric admission Additional Impression: Adjustment disorder with mixed disturbance of emotions and conduct Patient Instructions: General Instructions Disposition: DISCHARGE HOME Condition: Stable Krystian Forman Nov 30, 2017 13:29
== END 2017-11-30 14:11 | disposition home or self-care (01) ==
LOC: NEPD 00:06 → NEPJ 14:11
DX: F43.25 Adjustment disorder with mixed disturbance of emotions and conduct (principal); F14.10 Cocaine abuse, uncomplicated; F31.9 Bipolar disorder, unspecified; F17.200 Nicotine dependence, unspecified, uncomplicated; Z79.899 Other long term (current) drug therapy
CPT/HCPCS: 80053; 80307; 84443; 85025; 99283